=== PATIENT | female | born 1945 | race Caucasian/White ===

== ENCOUNTER 2016-05-27 13:52 | Emergency (ER) | payer MEDICARE ==
[~2016-05-27 13:52] MED LIST: ASCO500C PO; ASPI-482 PO; ASPI325T11 PO; ASPI81TA2 PO; CALC1TAB PO; CLOP75TA27 PO; ENAL20TA PO; HYDR-971 PO; HYDR12.58 PO; INSU100C4 SQ; INSU100V8 SQ; ISOS60TA PO; ISOS60TA2 PO; LISI10TA2 PO; MECL12.5 PO; MELO7.5T5 PO; METO-269 PO; MULT-658 PO; NIFE30TA17 PO; NIFE30TA2 PO; OMEG-33 PO; SIMV20TA3 PO; SIMV40TA3 PO; UBID200C4 PO
--- NOTE | 2016-05-27 14:25 | PHYS DOC ---
Past Medical History Past Medical History: CAD, Cancer, Diabetes-Type I, Heart Disease, Hypertension , Other Additional Past Medical Histor: MELANOMA-LEFT KNEE,VESTIBULAR INNER EAR PROBLEM Past Surgical History: Coronary Bypass Surgery, , Hysterectomy, Tubal ligation, Other Additional Past Surgical Histo: Mastectomy, cataract surgery, carpal tunnel,RT LEG FEM-POP BYPASS Alcohol Use: None Drug Use: None Adult General Chief Complaint Chief Complaint: DIZZY/LIGHT HEADED HPI HPI 70-year-old female who has known this tubular dysfunction and recurrent bouts of vertigo is presenting again today with classic symptoms of her vertigo. She states she was trying to put on her pain legs and felt sudden onset dizziness lightheadedness. She denies falling or having any traumatic injury. She does have some mild nausea with no vomiting. She denies any chest pain or shortness of breath. She denies any fever or chills area Dr. Houston also came down and was able to see the patient and agrees that this is typical classic vertigo symptoms that she is having today. A blood glucose in the field was taken at 92 and normal. Upon my exam and initial evaluation, the patient is fully alert and oriented and able to answer all my questions appropriately. Review of Systems Review of Systems Constitutional: Denies fever or chills [] Eyes: Denies change in visual acuity, redness, or eye pain [] HENT: Denies nasal congestion or sore throat [] Respiratory: Denies cough or shortness of breath [] Cardiovascular: No additional information not addressed in HPI [] GI: Denies abdominal pain, nausea, vomiting, bloody stools or diarrhea [] : Denies dysuria or hematuria [] Musculoskeletal: Denies back pain or joint pain [] Integument: Denies rash or skin lesions [] Neurologic: Denies headache, focal weakness or sensory changes [] Endocrine: Denies polyuria or polydipsia [] Current Medications Current Medications Current Medications Medications (Trade) Dose Ordered Sig/Josselyn Start Time Stop Time Status Last Admin Dose Admin Meclizine HCl (Antivert) 50 mg 1X ONCE 05/27/16 14:30 05/27/16 14:31 DC 05/27/16 14:26 50 MG Ondansetron HCl (Zofran) 4 mg 1X ONCE 05/27/16 14:30 05/27/16 14:31 DC 05/27/16 14:26 4 MG Sodium Chloride (Iv Sodium Chloride 0.9% 1000ml Bag) 1,000 ml @ 1,000 mls/hr 1X ONCE 05/27/16 14:30 05/27/16 15:29 DC 05/27/16 14:28 1,000 MLS/HR Allergies Allergies Allergies Coded Allergies Type Severity Reaction Last Updated Verified No Known Drug Allergies 12/20/13 No Physical Exam Physical Exam Constitutional: Well developed, well nourished, no acute distress, non-toxic appearance. [] HENT: Normocephalic, atraumatic, bilateral external ears normal, oropharynx moist, no oral exudates, nose normal. [] Eyes: PERRLA, EOMI, conjunctiva normal, no discharge. [] Neck: Normal range of motion, no tenderness, supple, no stridor. [] Cardiovascular:Heart rate regular rhythm, no murmur [] Lungs & Thorax: Bilateral breath sounds clear to auscultation [] Abdomen: Bowel sounds normal, soft, no tenderness, no masses, no pulsatile masses. [] Skin: Warm, dry, no erythema, no rash. [] Back: No tenderness, no CVA tenderness. [] Extremities: No tenderness, no cyanosis, no clubbing, ROM intact, no edema. [] Neurologic: Alert and oriented X 3, normal motor function, normal sensory function, no focal deficits noted. [] Psychologic: Affect normal, judgement normal, mood normal. [] Current Patient Data Vital Signs Vital Signs Date Time Temp Pulse Resp B/P Pulse Ox O2 Delivery O2 Flow Rate FiO2 05/27/16 16:30 66 162/72 05/27/16 15:30 16 98 Room Air 05/27/16 13:58 97.9 97.9 Lab Values Laboratory Tests Test 05/27/16 14:20 White Blood Count 13.6x10^3/uL (4.0-11.0) H Red Blood Count 4.32x10^6/uL (3.50-5.40) Hemoglobin 12.9g/dL (12.0-15.5) Hematocrit 39.0% (36.0-47.0) Mean Corpuscular Volume 90fL (79-100) Mean Corpuscular Hemoglobin 30pg (25-35) Mean Corpuscular Hemoglobin Concent 33g/dL (31-37) Red Cell Distribution Width 13.7% (11.5-14.5) Platelet Count 194x10^3/uL (140-400) Neutrophils (%) (Auto) 85% (31-73) H Lymphocytes (%) (Auto) 8% (24-48) L Monocytes (%) (Auto) 6% (0-9) Eosinophils (%) (Auto) 1% (0-3) Basophils (%) (Auto) 1% (0-3) Neutrophils # (Auto) 11.5x10^3uL (1.8-7.7) H Lymphocytes # (Auto) 1.0x10^3/uL (1.0-4.8) Monocytes # (Auto) 0.8x10^3/uL (0.0-1.1) Eosinophils # (Auto) 0.1x10^3/uL (0.0-0.7) Basophils # (Auto) 0.1x10^3/uL (0.0-0.2) Sodium Level 141mmol/L (136-145) Potassium Level 4.0mmol/L (3.5-5.1) Chloride Level 103mmol/L (98-107) Carbon Dioxide Level 29mmol/L (21-32) Anion Gap 9 (6-14) Blood Urea Nitrogen 30mg/dL (7-20) H Creatinine 1.0mg/dL (0.6-1.0) Estimated GFR (Cockcroft-Gault) 54.8 Glucose Level 102mg/dL (70-99) H Calcium Level 9.3mg/dL (8.5-10.1) Troponin I Quantitative 0.023ng/mL (0.000-0.055) Laboratory Tests 05/27/16 14:20 Laboratory Tests 05/27/16 14:20 EKG EKG EKG as interpreted by me shows an atrial flutter type pattern with a heart rate of 60 bpm. There are no acute ischemic findings. I reviewed this EKG with Dr. Houston who agrees this is typical for her usual EKG. Radiology/Procedures Radiology/Procedures Portable 1 view of the chest as interpreted by the radiologist showed a minimal infiltrate in the right upper lobe. I communicated these findings to the patient 's degree she will follow closely with Dr. Romero for this finding. I will also communicate this finding to Dr. Romero. Course & Med Decision Making Course & Med Decision Making Pertinent Labs and Imaging studies reviewed. (See chart for details) This 70-year-old female with symptoms that are classic for her usual vertigo type symptoms will be given a fluid bolus and meclizine in the department. Laboratory workup will be obtained. Her symptoms seem classic for her usual vertigo and so I do not see an indication to perform any head CT at this time. If her symptoms improve she will be safe to be discharged home. Dr. Houston was also here to discuss her case and agreed with this plan. A portable view of her chest didn't demonstrate any infiltrate in the right upper lobe that is somewhat suspicious with the absence of any respiratory type complaints. She is having no cough or fever. I communicated these findings to the patient as well as Dr. Romero who agreed that the patient be safe to follow up with him for repeat chest film area patient given a full IV liter of fluid and ultimately ambulate around the department. She feels comfortable to be discharged home with Zofran ODT. I will communicate this plan with Dr. Araujo who will assume care. Dragon Disclaimer Dragon Disclaimer This electronic medical record was generated, in whole or in part, using a voice recognition dictation system. Departure Departure Impression: Primary Impression: Vertigo Disposition: 01 HOME, SELF-CARE Admitting Physician: Other Condition: STABLE Referrals: CHADD ROMERO MD (PCP) Patient Instructions: Vertigo, [id number] Additional Instructions: Please continue to drink plenty of fluids and take zofran as needed for nausea. Follow up with Dr. Romero as discussed for your chest x-ray finding in the next week. Return to the ER if you develop any worsening of your symptoms. Scripts Ondansetron (Zofran Odt)4 Mg Tab.rapdis4 Mg PO BID PRN NAUSEA/VOMITING #10 TAB Prov:PIPE DUNCAN DO 05/27/16 PIPE DUNCAN DO May 27, 2016 14:25
--- NOTE | 2016-05-27 14:25 | RAD ---
Exam performed: One view chest. Indication: dizziness and nausea since 10:30 AM this morning Date of Service: 05/27/2016 3:55 PM Comparison: 01/05/16. Single AP upright portable view chest findings: Cardiomediastinal silhouette is within limits of normal. Minimal infiltrates are seen in the right upper lobe No pleural effusion or pneumothorax is detected. The bony structures are normal. Impression: Minimal infiltrate right upper lobe
[2016-05-27] MEDS ORDERED: ONDANSETRON PF 4 MG/2 ML VIAL. IV ONE (14:30)
[2016-05-27] MEDS ORDERED: MECLIZINE HCL 12.5 MG TABLET. PO ONE (14:30)
[2016-05-27] MEDS ORDERED: IV NORMAL SALINE 1000ML BAG 1,000 ML IV ONE (14:30)
[2016-05-27 14:43] LABS: BASO # 0.1 x10^3/uL (0.0-0.2); BASO % 1 % (0-3); EOS % 1 % (0-3); HEMOGLOBIN 12.9 g/dL (12.0-15.5); LYMPH % 8 % (24-48); MEAN CORPUSCULAR HEMOGLOBIN 30 pg (25-35); MEAN CORPUSCULAR HGB CONC 33 g/dL (31-37); MEAN CORPUSCULAR VOLUME 90 fL (79-100); MONO % 6 % (0-9); NEUT % 85 % (31-73); PLATELET COUNT 194 x10^3/uL (140-400); RED BLOOD COUNT 4.32 x10^6/uL (3.50-5.40); RED CELL DISTRIBUTION WIDTH 13.7 % (11.5-14.5); WHITE BLOOD COUNT 13.6 x10^3/uL (4.0-11.0)
[2016-05-27 15:02] LABS: CALCIUM 9.3 mg/dL (8.5-10.1); GFR 54.8
[2016-05-27] MEDS ORDERED: ONDA4TAB10 PO (15:27)
[2016-05-27 16:30] VITALS: BP 162/72
--- NOTE | 2016-05-28 12:47 | EKG ---
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
== END 2016-05-27 16:26 | disposition home or self-care (01) ==
LOC: ER 13:52
DX: R42 Dizziness and giddiness (principal); I25.10 Atherosclerotic heart disease of native coronary artery without angina pectoris; E10.9 Type 1 diabetes mellitus without complications; I10 Essential (primary) hypertension; Z95.1 Presence of aortocoronary bypass graft
CPT/HCPCS: 71010; 80048; 84484; 85027; 93005; 96361; 96374; 99285; J2405; J7030; J8597

== ENCOUNTER 2017-03-23 11:01 | Emergency (ER) | payer MEDICARE ==
[2017-03-23 13:03] LABS: ADD MAN DIFF? NO
[2017-03-23 13:07] LABS: BASO # 0.1 x10^3/uL (0.0-0.2); BASO % 1 % (0-3); EOS # 0.3 x10^3/uL (0.0-0.7); EOS % 4 % (0-3); HEMATOCRIT 39.7 % (36.0-47.0); HEMOGLOBIN 12.9 g/dL (12.0-15.5); LYMPH # 1.5 x10^3/uL (1.0-4.8); LYMPH % 25 % (24-48); MEAN CORPUSCULAR HEMOGLOBIN 30 pg (25-35); MEAN CORPUSCULAR HGB CONC 32 g/dL (31-37); MEAN CORPUSCULAR VOLUME 93 fL (79-100); MONO # 0.8 x10^3/uL (0.0-1.1); MONO % 14 % (0-9); NEUT # 3.4 x10^3uL (1.8-7.7); NEUT % 56 % (31-73); PLATELET COUNT 223 x10^3/uL (140-400); RED BLOOD COUNT 4.27 x10^6/uL (3.50-5.40); RED CELL DISTRIBUTION WIDTH 13.4 % (11.5-14.5); WHITE BLOOD COUNT 6.1 x10^3/uL (4.0-11.0)
[2017-03-23 13:17] LABS: BILIRUBIN,URINE NEGATIVE (NEG); CLARITY,URINE CLEAR; COLOR,URINE YELLOW; GLUCOSE,URINE NEGATIVE (NEG); NITRITE,URINE NEGATIVE (NEG); PH,URINE 6.5; PROTEIN,URINE 100 mg/dL (NEG-TRACE); UROBILINOGEN,URINE 0.2 mg/dL (0.2 mg/dL)
[2017-03-23 13:18] LABS: ANION GAP 10 (6-14); BLOOD UREA NITROGEN 29 mg/dL (7-20); BUN/CREATININE RATIO 32 (6-20); CALCIUM 9.3 mg/dL (8.5-10.1); CARBON DIOXIDE 29 mmol/L (21-32); CHLORIDE 104 mmol/L (98-107); CREATININE 0.9 mg/dL (0.6-1.0); GFR 61.7; GLUCOSE 191 mg/dL (70-99); POTASSIUM 4.2 mmol/L (3.5-5.1); SODIUM 143 mmol/L (136-145)
[2017-03-23 13:24] LABS: ALBUMIN 3.6 g/dL (3.4-5.0); ALBUMIN/GLOBULIN RATIO 1.2 (1.0-1.7); ALK PHOS 75 U/L (46-116); ALT (SGPT) 22 U/L (14-59); AST (SGOT) 18 U/L (15-37); TOTAL BILIRUBIN 0.3 mg/dL (0.2-1.0); TOTAL PROTEIN 6.6 g/dL (6.4-8.2)
[2017-03-23 13:30] LABS: TROPONINI < 0.017 ng/mL (0.000-0.055)
[2017-03-23] MEDS: IOHEXOL 300 MG/ML 100ML VIAL. IV (13:44)
[2017-03-23 13:59] LABS: BACTERIA,URINE 0 /HPF (0-FEW); RBC,URINE 0 /HPF (0-2); SQUAMOUS EPITHELIAL CELL,UR OCC /LPF
[2017-03-23 16:10] LABS: INFLUENZA A PATIENT NEGATIVE (NEGATIVE); INFLUENZA B PATIENT NEGATIVE (NEGATIVE); OBC FLU VALID
== END 2017-03-23 17:05 | disposition home or self-care (01) ==
LOC: ER 11:01
DX: R00.2 Palpitations (principal); B34.9 Viral infection, unspecified; I25.10 Atherosclerotic heart disease of native coronary artery without angina pectoris; E10.9 Type 1 diabetes mellitus without complications; I10 Essential (primary) hypertension; Z79.4 Long term (current) use of insulin; Z86.718 Personal history of other venous thrombosis and embolism
CPT/HCPCS: 36415; 71045; 71275; 80053; 81001; 84484; 85025; 87086; 87804; 87804-59; 93005; 99285-25; Q9967

== ENCOUNTER → 2017-06-12 | Outpatient (CLI) | payer MEDICARE ==
[2017-06-12] MEDS: GADOBUTROL 7.5 MMOL/7.5 ML VIAL IV (11:25)
== END | disposition home or self-care (01) ==
LOC: KCIC MRI 10:36
DX: H81.22 Vestibular neuronitis, left ear (principal)
CPT/HCPCS: 70553; A9585

== ENCOUNTER 2018-06-27 10:34 | Inpatient (IN) | payer MEDICARE ==
[~2018-06-27] VITALS: Ht 157.5 cm; Wt 56.7 kg
[~2018-06-27 10:34] MED LIST changes: +ASCO250T PO; +ASPI-630 PO; -ASPI81TA2 PO; -CLOP75TA27 PO; +CLOP75TA57 PO; +HYDR-3164 PO; -HYDR-971 PO; +LISI-130 PO; +METO50TA6 PO; +ONDA4TAB10 PO; +UBID100C40 PO; -UBID200C4 PO; +UBID200C7 PO; +VITA400C36 PO
[2018-06-27] MEDS ORDERED: ASPIRIN 325 MG TABLET PO ONE (11:00)
[2018-06-27 11:12] LABS: BASO # 0.1 x10^3/uL (0.0-0.2); BASO % 1 % (0-3); EOS # 0.3 x10^3/uL (0.0-0.7); EOS % 4 % (0-3); HEMATOCRIT 37.1 % (36.0-47.0); HEMOGLOBIN 12.2 g/dL (12.0-15.5); LYMPH # 1.3 x10^3/uL (1.0-4.8); LYMPH % 18 % (24-48); MEAN CORPUSCULAR HEMOGLOBIN 31 pg (25-35); MEAN CORPUSCULAR HGB CONC 33 g/dL (31-37); MEAN CORPUSCULAR VOLUME 93 fL (79-100); MONO # 0.8 x10^3/uL (0.0-1.1); MONO % 12 % (0-9); NEUT # 4.7 x10^3uL (1.8-7.7); NEUT % 66 % (31-73); PLATELET COUNT 250 x10^3/uL (140-400); RED CELL DISTRIBUTION WIDTH 13.2 % (11.5-14.5); WHITE BLOOD COUNT 7.2 x10^3/uL (4.0-11.0)
[2018-06-27 11:28] LABS: CALCIUM 8.9 mg/dL (8.5-10.1); CREATININE 1.1 mg/dL (0.6-1.0); GFR 48.8; POTASSIUM 3.7 mmol/L (3.5-5.1)
--- NOTE | 2018-06-27 11:30 | RAD ---
EXAM: CHEST 1 VIEW History: Shortness of breath COMPARISON: 05/16/2017 TECHNIQUE: Single portable radiograph of the chest FINDINGS: The cardiac silhouette is unremarkable. Minimal prominent appearing bilateral interstitial lung markings. The costophrenic sulci are clear and well demarcated. Median sternotomy wires identified. IMPRESSION: Probable mild congestive changes. Electronically signed by: Jose Becerra MD (06/27/2018 11:28 AM) [facility]
[2018-06-27 11:32] LABS: PROTHROMBIN TIME PATIENT 12.8 SEC (11.7-14.0)
[2018-06-27 11:34] LABS: ALBUMIN 3.4 g/dL (3.4-5.0); ALBUMIN/GLOBULIN RATIO 0.9 (1.0-1.7); MAGNESIUM 1.9 mg/dL (1.8-2.4); TOTAL BILIRUBIN 0.4 mg/dL (0.2-1.0); TOTAL PROTEIN 7.2 g/dL (6.4-8.2)
--- NOTE | 2018-06-27 11:40 | PHYS DOC ---
Past Medical History Past Medical History: CAD, Cancer, Diabetes-Type I, High Cholesterol, Heart Disease, Hypertension, Other Additional Past Medical Histor: MELANOMA-LEFT KNEE,VESTIBULAR NEURONITIS L EAR, VERTIGO Past Surgical History: Coronary Bypass Surgery, , Hysterectomy, Tubal ligation, Other Additional Past Surgical Histo: Mastectomy, cataract surgery, carpal tunnel,RT LEG FEM-POP BYPASS Alcohol Use: None Drug Use: None Adult General Chief Complaint Chief Complaint: SHORTNESS OF BREATH HPI HPI Patient is a 72 year old female with history of diabetes type 1, hypertension, high cholesterol, CAD with open heart surgery years back, who presents to the ED today complaining of shortness of breath and chest tightness on exertion that has been going on for 2 days. Patient denies any fever coughing or congestion. Denies any nausea or vomiting. She states she does not have any chest pain just chest tightness. She states she has been following up with a new referral clerk and she is being worked up. PCP Dr. Chadd Romero Sandblasting Supervisor Dr. Lovell Review of Systems Review of Systems Constitutional: Denies fever or chills [] Eyes: Denies change in visual acuity, redness, or eye pain [] HENT: Denies nasal congestion or sore throat [] Respiratory: Reports shortness of breath and chest tightness. Denies cough Cardiovascular: No additional information not addressed in HPI [] GI: Denies abdominal pain, nausea, vomiting, bloody stools or diarrhea [] : Denies dysuria or hematuria [] Musculoskeletal: Denies back pain or joint pain [] Integument: Denies rash or skin lesions [] Neurologic: Denies headache, focal weakness or sensory changes [] All other systems were reviewed and found to be within normal limits, except as documented in this note. Current Medications Current Medications Current Medications Medications (Trade) Dose Ordered Sig/Josselyn Start Time Stop Time Status Last Admin Dose Admin Aspirin (Consuelo Aspirin) 325 mg 1X ONCE 06/27/18 11:00 06/27/18 11:03 DC 06/27/18 11:14 325 MG Allergies Allergies Allergies Coded Allergies Type Severity Reaction Last Updated Verified No Known Drug Allergies 12/20/13 No Physical Exam Physical Exam Constitutional: Well developed, well nourished, no acute distress, non-toxic appearance. [] HENT: Normocephalic, atraumatic, bilateral external ears normal, oropharynx moist, no oral exudates, nose normal. [] Eyes: PERRLA, EOMI, conjunctiva normal, no discharge. [] Neck: Normal range of motion, no tenderness, supple, no stridor. [] Cardiovascular: Old healed midline chest surgical incision consistent with open heart surgery Heart rate regular rhythm, no murmur [] Lungs & Thorax: Bilateral breath sounds clear to auscultation [] Abdomen: Bowel sounds normal, soft, no tenderness, no masses, no pulsatile masses. [] Skin: Warm, dry, no erythema, no rash. [] Back: No tenderness, no CVA tenderness. [] Extremities: No tenderness, no cyanosis, no clubbing, ROM intact, no edema. [] Neurologic: Alert and oriented X 3, normal motor function, normal sensory function, no focal deficits noted. [] Psychologic: Affect normal, judgement normal, mood normal. [] Current Patient Data Vital Signs Vital Signs Date Time Temp Pulse Resp B/P (MAP) Pulse Ox O2 Delivery O2 Flow Rate FiO2 06/27/18 13:55 56 14 194/79 (117) 98 Room Air 06/27/18 10:42 98.4 98.4 Lab Values Laboratory Tests Test 06/27/18 10:52 06/27/18 11:55 White Blood Count 7.2 x10^3/uL (4.0-11.0) Red Blood Count 4.00 x10^6/uL (3.50-5.40) Hemoglobin 12.2 g/dL (12.0-15.5) Hematocrit 37.1 % (36.0-47.0) Mean Corpuscular Volume 93 fL (79-100) Mean Corpuscular Hemoglobin 31 pg (25-35) Mean Corpuscular Hemoglobin Concent 33 g/dL (31-37) Red Cell Distribution Width 13.2 % (11.5-14.5) Platelet Count 250 x10^3/uL (140-400) Neutrophils (%) (Auto) 66 % (31-73) Lymphocytes (%) (Auto) 18 % (24-48) L Monocytes (%) (Auto) 12 % (0-9) H Eosinophils (%) (Auto) 4 % (0-3) H Basophils (%) (Auto) 1 % (0-3) Neutrophils # (Auto) 4.7 x10^3uL (1.8-7.7) Lymphocytes # (Auto) 1.3 x10^3/uL (1.0-4.8) Monocytes # (Auto) 0.8 x10^3/uL (0.0-1.1) Eosinophils # (Auto) 0.3 x10^3/uL (0.0-0.7) Basophils # (Auto) 0.1 x10^3/uL (0.0-0.2) Prothrombin Time 12.8 SEC (11.7-14.0) Prothrombin Time INR 1.0 (0.8-1.1) D-Dimer (Deepa) 0.48 ug/mlFEU (0.00-0.50) Sodium Level 141 mmol/L (136-145) Potassium Level 3.7 mmol/L (3.5-5.1) Chloride Level 103 mmol/L (98-107) Carbon Dioxide Level 29 mmol/L (21-32) Anion Gap 9 (6-14) Blood Urea Nitrogen 31 mg/dL (7-20) H Creatinine 1.1 mg/dL (0.6-1.0) H Estimated GFR (Cockcroft-Gault) 48.8 BUN/Creatinine Ratio 28 (6-20) H Glucose Level 161 mg/dL (70-99) H Calcium Level 8.9 mg/dL (8.5-10.1) Magnesium Level 1.9 mg/dL (1.8-2.4) Total Bilirubin 0.4 mg/dL (0.2-1.0) Aspartate Amino Transferase (AST) 21 U/L (15-37) Alanine Aminotransferase (ALT) 20 U/L (14-59) Alkaline Phosphatase 75 U/L (46-116) Creatine Kinase 76 U/L (26-192) Creatine Kinase MB (Mass) 2.1 ng/mL (0.0-3.6) Creatine Kinase MB Relative Index 2.8 % (0-4) Troponin I Quantitative < 0.017 ng/mL (0.000-0.055) FJ-Qsa-P-Type Natriuretic Peptide 1082 pg/mL (0-124) H Total Protein 7.2 g/dL (6.4-8.2) Albumin 3.4 g/dL (3.4-5.0) Albumin/Globulin Ratio 0.9 (1.0-1.7) L Triglycerides Level 63 mg/dL (0-150) Cholesterol Level 181 mg/dL (0-200) LDL Cholesterol, Calculated 96 mg/dL (0-100) VLDL Cholesterol, Calculated 13 mg/dL (0-40) Non-HDL Cholesterol Calculated 109 mg/dL (0-129) HDL Cholesterol 72 mg/dL (40-60) H Cholesterol/HDL Ratio 2.5 Thyroid Stimulating Hormone (TSH) 1.342 uIU/mL (0.358-3.74) Urine Collection Type Unknown Urine Color Yellow Urine Clarity Clear Urine pH 7.0 Urine Specific [place] <=1.005 Urine Protein Negative mg/dL (NEG-TRACE) Urine Glucose (UA) Negative mg/dL (NEG) Urine Ketones (Stick) Negative mg/dL (NEG) Urine Blood Negative (NEG) Urine Nitrite Negative (NEG) Urine Bilirubin Negative (NEG) Urine Urobilinogen Dipstick 0.2 mg/dL (0.2 mg/dL) Urine Leukocyte Esterase Negative (NEG) Urine RBC 0 /HPF (0-2) Urine WBC 0 /HPF (0-4) Urine Squamous Epithelial Cells Few /LPF Urine Bacteria 0 /HPF (0-FEW) Laboratory Tests 06/27/18 10:52 Laboratory Tests 06/27/18 10:52 EKG EKG Interpreted by Dr. Bustos sinus rhythm HR 63 no STEMI[] Radiology/Procedures Radiology/Procedures []PROCEDURE: PORTABLE CHEST 1V EXAM: CHEST 1 VIEW History: Shortness of breath COMPARISON: 05/16/2017 TECHNIQUE: Single portable radiograph of the chest FINDINGS: The cardiac silhouette is unremarkable. Minimal prominent appearing bilateral interstitial lung markings. The costophrenic sulci are clear and well demarcated. Median sternotomy wires identified. IMPRESSION: Probable mild congestive changes. Electronically signed by: Jose Becerra MD (06/27/2018 11:28 AM) [facility] DICTATED and SIGNED BY: JOSE BECERRA MD DATE: 06/27/18 1128 Course & Med Decision Making Course & Med Decision Making Pertinent Labs and Imaging studies reviewed. (See chart for details) This is a 72-year-old female patient presenting to the ED today complaining of shortness of breath and chest tightness on exertion for 2 days. EKG, lab work, including cardiac workup is negative, chest x-ray noted for mild CHF. Consulted with Grace YARBROUGH for cardiology who will come and see patient in the ED.Allan came and saw patient. Spoke with Dr. Romero who accepted patient for admission. Dragon Disclaimer Dragon Disclaimer This electronic medical record was generated, in whole or in part, using a voice recognition dictation system. Departure Departure Impression: Primary Impression: Chest tightness Additional Impression: Shortness of breath Disposition: ADMITTED INPATIENT Condition: STABLE Referrals: CHADD ROMERO MD (PCP) Problem Qualifiers ADRIAN SMITH SANDBLASTING SUPERVISOR Jun 27, 2018 11:40
[2018-06-27 12:03] LABS: BILIRUBIN,URINE NEGATIVE (NEG); CLARITY,URINE CLEAR; COLOR,URINE YELLOW; NITRITE,URINE NEGATIVE (NEG); PROTEIN,URINE NEGATIVE (NEG-TRACE); UROBILINOGEN,URINE 0.2 mg/dL (0.2 mg/dL)
[2018-06-27 12:03] LABS: D-DIMER 0.48 ug/mlFEU (0.00-0.50)
[2018-06-27 12:08] LABS: BACTERIA,URINE 0 /HPF (0-FEW); RBC,URINE 0 /HPF (0-2); SQUAMOUS EPITHELIAL CELL,UR FEW /LPF; WBC,URINE 0 /HPF (0-4)
[2018-06-27 13:49] LABS: CHOLESTEROL/HDL RATIO 2.5
--- NOTE | 2018-06-27 14:03 | PDOC2 ---
BERTA TAN APPRENTICE COSMETOLOGIST 06/27/18 1403: CARDIAC CONSULT DATE OF CONSULT Date of Consult DATE: 06/27/18 TIME: 13:43 REASON FOR CONSULT Reason for Consult: Chest pain REFERRING PHYSICIAN Referring Physician: Agusto SOURCE Source: Chart review, Patient HISTORY OF PRESENT ILLNESS HISTORY OF PRESENT ILLNESS This is a pleasant 72 yo female admitted for complains of chest pain. Reports that she has been feeling more tired in the last 3 days. [place] also SOA even at rest and felt like she has to take a deep breath often. No significant leg swelling, no orthopnea and PND. She started having chest tightness this morning started to left chest then middle and lasted till she got to ED. No NTG given but ASA. Her SBP currently is 210 and told me that her BP tends to go up when she is in the hospital. At home she noted this as 140-150s. She took all of her BP meds this morning. No chronic NSAID use, no recent infection requiring antibiotics, denies any nausea, vomiting, diarrhea. Denies any MOY, no recent falls or injury. 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 in the past with also past retinal detachment repair) Renal/: No pertinent hx Endocrine: Diabetes (1 since she was 4 yo) Dermatology: Melanoma (with left knee with excision) PAST SURGICAL HISTORY Past Surgical History: CABG (1999 x3), , Mastectomy (bilateral), Tubal Ligation, Hysterectomy, Other (Carpal tunnel release; right leg fempop bypass and LLE revascularization (unclear); breast reconstructions; eye surgery to right; [facility] 2001 and 2006 no intervention) FAMILY HISTORY Family History noncontributory SOCIAL HISTORY Smoke: No ALCOHOL: none Drugs: None CURRENT MEDICATIONS CURRENT MEDICATIONS Current Medications Medications (Trade) Dose Ordered Sig/Josselyn Route PRN Reason Start Time Stop Time Status Last Admin Dose Admin Aspirin (Consuelo Aspirin) 325 mg 1X ONCE PO 06/27/18 11:00 06/27/18 11:03 DC 06/27/18 11:14 ALLERGIES ALLERGIES: Coded Allergies: No Known Drug Allergies (Unverified , 12/20/13) ROS Review of System 14 point ROS evaluated with pertinent positives noted per HPI PHYSICAL EXAM General: Alert, Oriented X3, Cooperative, No acute distress HEENT: Atraumatic, Mucous membr. moist/pink Lungs: Other (basilar crackles) Heart: Regular rate, Other (4/6 systolic murmur to LLS border) Abdomen: Soft, No tenderness Extremities: No cyanosis, Other (trace LE edema) Skin: No breakdown, No significant lesion Neuro: Normal speech, Sensation intact Psych/Mental Status: Mental status NL, Mood NL MUSCULOSKELETAL: Osteoarthritic changes both hands VITALS VITALS Vital Signs Date Time Temp Pulse Resp B/P (MAP) Pulse Ox O2 Delivery O2 Flow Rate FiO2 06/27/18 10:42 98.4 60 20 187/86 (119) 97 Room Air 98.4 LABS Lab: Laboratory Tests Test 06/27/18 10:52 06/27/18 11:55 White Blood Count 7.2 x10^3/uL (4.0-11.0) Red Blood Count 4.00 x10^6/uL (3.50-5.40) Hemoglobin 12.2 g/dL (12.0-15.5) Hematocrit 37.1 % (36.0-47.0) Mean Corpuscular Volume 93 fL (79-100) Mean Corpuscular Hemoglobin 31 pg (25-35) Mean Corpuscular Hemoglobin Concent 33 g/dL (31-37) Red Cell Distribution Width 13.2 % (11.5-14.5) Platelet Count 250 x10^3/uL (140-400) Neutrophils (%) (Auto) 66 % (31-73) Lymphocytes (%) (Auto) 18 % (24-48) Monocytes (%) (Auto) 12 % (0-9) Eosinophils (%) (Auto) 4 % (0-3) Basophils (%) (Auto) 1 % (0-3) Neutrophils # (Auto) 4.7 x10^3uL (1.8-7.7) Lymphocytes # (Auto) 1.3 x10^3/uL (1.0-4.8) Monocytes # (Auto) 0.8 x10^3/uL (0.0-1.1) Eosinophils # (Auto) 0.3 x10^3/uL (0.0-0.7) Basophils # (Auto) 0.1 x10^3/uL (0.0-0.2) Prothrombin Time 12.8 SEC (11.7-14.0) Prothromb Time International Ratio 1.0 (0.8-1.1) D-Dimer (Deepa) 0.48 ug/mlFEU (0.00-0.50) Sodium Level 141 mmol/L (136-145) Potassium Level 3.7 mmol/L (3.5-5.1) Chloride Level 103 mmol/L (98-107) Carbon Dioxide Level 29 mmol/L (21-32) Anion Gap 9 (6-14) Blood Urea Nitrogen 31 mg/dL (7-20) Creatinine 1.1 mg/dL (0.6-1.0) Estimated GFR (Cockcroft-Gault) 48.8 BUN/Creatinine Ratio 28 (6-20) Glucose Level 161 mg/dL (70-99) Calcium Level 8.9 mg/dL (8.5-10.1) Magnesium Level 1.9 mg/dL (1.8-2.4) Total Bilirubin 0.4 mg/dL (0.2-1.0) Aspartate Amino Transf (AST/SGOT) 21 U/L (15-37) Alanine Aminotransferase (ALT/SGPT) 20 U/L (14-59) Alkaline Phosphatase 75 U/L (46-116) Creatine Kinase 76 U/L (26-192) Creatine Kinase MB (Mass) 2.1 ng/mL (0.0-3.6) Creatine Kinase MB Relative Index 2.8 % (0-4) Troponin I Quantitative < 0.017 ng/mL (0.000-0.055) PQ-Cjh-U-Type Natriuretic Peptide 1082 pg/mL (0-124) Total Protein 7.2 g/dL (6.4-8.2) Albumin 3.4 g/dL (3.4-5.0) Albumin/Globulin Ratio 0.9 (1.0-1.7) Thyroid Stimulating Hormone (TSH) 1.342 uIU/mL (0.358-3.74) Urine Collection Type Unknown Urine Color Yellow Urine Clarity Clear Urine pH 7.0 Urine Specific [place] <=1.005 Urine Protein Negative mg/dL (NEG-TRACE) Urine Glucose (UA) Negative mg/dL (NEG) Urine Ketones (Stick) Negative mg/dL (NEG) Urine Blood Negative (NEG) Urine Nitrite Negative (NEG) Urine Bilirubin Negative (NEG) Urine Urobilinogen Dipstick 0.2 mg/dL (0.2 mg/dL) Urine Leukocyte Esterase Negative (NEG) Urine RBC 0 /HPF (0-2) Urine WBC 0 /HPF (0-4) Urine Squamous Epithelial Cells Few /LPF Urine Bacteria 0 /HPF (0-FEW) ECHOCARDIOGRAM ECHOCARDIOGRAM <Conclusion> Limited The LV Ejection Fraction is 45%. There is moderate hypokinesis in the septal wall. There is no evidence of significant pericardial effusion. DATE: 05/16/171916 <Conclusion> Full The left ventricular systolic function is normal and the ejection fraction is within normal range. The Ejection Fraction is 60%. The left atrium size is normal. The right atrium size is normal. The aortic valve is mildly calcified. Doppler and Color Flow revealed no significant aortic regurgitation. Doppler and Color-flow revealed mild mitral regurgitation. The mitral valve leaflets are calcified. Mitral annular calcification is mild. Doppler and Color Flow revealed no tricuspid valve regurgitation noted. The tricuspid valve is normal in structure and function. The pulmonic valve is not well visualized. There is no evidence of significant pericardial effusion. DATE: 05/11/171932 ASSESSMENT/PLAN ASSESSMENT/PLAN 1. Chest pain: UA features 2. Accelerated HTN 3. Acute on chronic diastolic CHF 4. CAD: past CABG x3 in 1999 5. DM1: insulin dependent. A1C pending 6. HLP: lipids on goal 7. PAD: hx of RLE fempop bypass and LLE revascularization (unclear method), clinically stable. Recommendations 1. Lasix x1. Hydralazine IV PRN 2. Resume Home BP meds will adjust per BP trend. Home ASA/plavix. 3. TTE and renal duplex scan today. Trend troponin 4. LHC vs MPI tomorrow, risks and benefits discussed and agreeable to proceed. Will discuss with primary trauma therapist STEPHANIE ELLIOTT MD 06/27/18 1605: CARDIAC CONSULT ASSESSMENT/PLAN ASSESSMENT/PLAN Patient seen and examined. Agree with CLINICAL DOCUMENTATION MANAGER's assessment and plan. Chest pain with mixed features - could be secondary to uncontrolled hypertension but cannot rule out ischemic etiology. Cardiac enzymes negative so far. Check 2-D echo to assess LV function and rule out wall motion abnormalities Titrate antihypertensives for better blood pressure control Agree with renal arterial duplex scan to rule out renovascular hypertension Plan for Lexiscan nuclear stress test as previously planned Continue diuresis for acute on chronic diastolic heart failure Thank you for your consultation BERTA TAN APRN Jun 27, 2018 14:03 STEPHANIE ELLIOTT MD Jun 27, 2018 16:05
[2018-06-27] MEDS ORDERED: FUROSEMIDE 40 MG/4 ML VIAL. IVP ONE (14:30)
--- NOTE | 2018-06-27 14:36 | EKG ---
[facility] [address] [place] [address] Test Date: 2018-06-27 Test Time: 10:48:25 Pat Name: NEHA BEAR Department: Room: Gender: F Brusher War[place]: : 1945 Requested By: ADRIAN SMITH Order Number: [id number] Reading MD: Joaquín Shah MD Measurements Intervals Show Low Rate: 63 P: 46 MO: 182 QRS: 73 QRSD: 86 T: 52 QT: 410 QTc: 423 Interpretive Statements SINUS RHYTHM NON-SPECIFIC ST/T CHANGES Electronically Signed On 07-08-2018 10:21:43 CDT by Joaquín Shah MD
[2018-06-27] MEDS ORDERED: hydrALAZINE 20 MG/ML VIAL. IVP PRN (14:45)
[2018-06-27] MEDS ORDERED: MORPHINE SULFATE 4 MG/ML VIAL. IV PRN (15:00)
[2018-06-27] MEDS ORDERED: NITROGLYCERIN SUBLINGUAL 0.4 MG BOTTLE OF 25. SL PRN (15:00)
[2018-06-27] MEDS ORDERED: ONDANSETRON PF 4 MG/2 ML VIAL. IV PRN (15:00)
--- NOTE | 2018-06-27 16:16 | CARD ---
MR#: [id number] Date of Study: 06/27/2018 Ordering Physician: BERTA TAN, Referring Physician: CHADD RMOERO Tech: Amanda Pascual APPROVED REPORT EXAM: Two-dimensional and M-mode echocardiogram with Doppler and color Doppler. Other Information Quality : AverageHR: 63bpm Technically limited study due to Breast Surgery INDICATION Dyspnea CAD Chest Pain Congestive Heart Failure Surgery/Intervention CABG: Date: 2002 RISK FACTORS Hypertension Hyperlipidemia Diabetes 2D DIMENSIONS RVDd2.5 (2.9-3.5cm)Left Atrium(2D)2.6 (1.6-4.0cm) IVSd0.8 (0.7-1.1cm)Aortic Root(2D)3.1 (2.0-3.7cm) LVDd4.6 (3.9-5.9cm)LVOT Diameter2.1 (1.8-2.4cm) PWd1.1 (0.7-1.1cm)IVSs3.1 (0.8-1.2cm) LVDs3.1 (2.5-4.0cm)FS (%) 31.2 % SV56.3 mlLVEF(%)59.1 (>50%) Aortic Valve AoV Peak Marcelo.129.6cm/sAoV VTI33.4cm AO Peak GR.6.7mmHgLVOT Peak Marcelo.100.9cm/s LVOT VTI 27.68cmAO Mean GR.4mmHg CARLOS EDUARDO (VMAX)2.81kr6PRM (VTI)2.79cm2 Mitral Valve MV E Agptatwb427.6cm/sMV DECEL DMNO706ne MV A Dedcpqsi540.5cm/sMV RUH20gf E/A Ratio0.9MVA (PHT)3.17cm2 TDI E/Lateral E'15.0E/Medial E'20.9 Pulmonary Valve PV Peak Mmkthlon91.2cm/sPV Peak Grad.2mmHg Tricuspid Valve TR P. Tmkltdvu804uu/sRAP JRLZWVDJ1mtLa TR Peak Gr.27ekShEOOB51duKp Pulmonary Vein S1 Ldzgdbol96.6cm/sD2 Oglkufmx58.8cm/s LEFT VENTRICLE The left ventricle is normal size. There is normal left ventricular wall thickness. Basal inferior an d inferoseptal marin appear hypokinetic. The Ejection Fraction is 55%. Transmitral Doppler flow patte rn is Grade I-abnormal relaxation pattern. RIGHT VENTRICLE The right ventricle is normal size. There is normal right ventricular wall thickness. The right ventr icular systolic function is normal. ATRIA The left atrium size is normal. The right atrium size is normal. The interatrial septum is intact wit h no evidence for an atrial septal defect or patent foramen ovale as noted on 2-D or Doppler imaging. AORTIC VALVE The aortic valve is thickened but opens well. Doppler and Color Flow revealed no significant aortic r egurgitation. There is no significant aortic valvular stenosis. MITRAL VALVE The mitral valve is thickened but opens well. There is no evidence of mitral valve prolapse. There is no mitral valve stenosis. Doppler and Color-flow revealed trace to mild mitral regurgitation. TRICUSPID VALVE The tricuspid valve is normal in structure and function. Doppler and Color Flow revealed trace tricus pid regurgitation with an estimated PAP of 22 mmHg. There is no tricuspid valve stenosis. PULMONIC VALVE The pulmonic valve is not well visualized. Doppler and Color Flow revealed no pulmonic valvular regur gitation. GREAT VESSELS The aortic root is normal in size. The IVC is normal in size and collapses >50% with inspiration. PERICARDIAL EFFUSION There is no evidence of significant pericardial effusion. Critical Notification Critical Value: No <Conclusion> Basal inferior and inferoseptal marin appear hypokinetic. The Ejection Fraction is 55%. Transmitral Doppler flow pattern is Grade I-abnormal relaxation pattern. Trace to mild mitral regurgitation. Trace tricuspid regurgitation with an estimated PAP of 22 mmHg. There is no evidence of significant pericardial effusion. Signed by : Silvio Lovell, Electronically Approved : 06/27/2018 16:16:00
[2018-06-27 16:45] VITALS: BP 176/78
--- NOTE | 2018-06-27 17:24 | NUR ---
PT ORIENTED TO ROOM AND UNIT. BED LOW AND LOCKED, SIDE RAILS UP X 3, CALL LIGHT IN REACH. WILL CONTINUE TO ASSESS.
[2018-06-27 19:16] VITALS: BP 135/56
[2018-06-27] MEDS: ATORVASTATIN CALCIUM 10 MG TABLET. PO SCH (20:49)
[2018-06-27] MEDS: METOPROLOL TART IMMED RELEASE 50 MG TABLET. PO SCH (20:49)
[2018-06-27 22:31] VITALS: BP 162/72
[2018-06-28] VITALS (14 sets, daily range): BP systolic 128–179; BP diastolic 59–76
[2018-06-28 00:09] LABS: HEMOGLOBIN A1C 7.5 % (4.8-5.6)
[2018-06-28 05:12] LABS: BASO # 0.1 x10^3/uL (0.0-0.2); BASO % 1 % (0-3); EOS # 0.4 x10^3/uL (0.0-0.7); EOS % 5 % (0-3); HEMATOCRIT 40.1 % (36.0-47.0); HEMOGLOBIN 13.1 g/dL (12.0-15.5); LYMPH # 1.6 x10^3/uL (1.0-4.8); LYMPH % 22 % (24-48); MEAN CORPUSCULAR HEMOGLOBIN 30 pg (25-35); MEAN CORPUSCULAR HGB CONC 33 g/dL (31-37); MEAN CORPUSCULAR VOLUME 93 fL (79-100); MONO # 1.1 x10^3/uL (0.0-1.1); MONO % 15 % (0-9); NEUT # 4.1 x10^3uL (1.8-7.7); NEUT % 57 % (31-73); PLATELET COUNT 248 x10^3/uL (140-400); RED CELL DISTRIBUTION WIDTH 13.3 % (11.5-14.5); WHITE BLOOD COUNT 7.2 x10^3/uL (4.0-11.0)
[2018-06-28 05:37] LABS: CALCIUM 9.1 mg/dL (8.5-10.1); CREATININE 1.2 mg/dL (0.6-1.0); GFR 44.2; POTASSIUM 3.7 mmol/L (3.5-5.1)
--- NOTE | 2018-06-28 07:51 | RAD ---
MR#: [id number] Date of Study: 06/28/2018 Ordering Physician: BERTA TAN, Referring Physician: CHADD ROMERO Tech: Juanita Benton BS, RTR, RDMS, RVT APPROVED REPORT Patient Location: IN-PATIENT Indications Uncontrolled HTN Risk Factors Hypertension Diabetes Renal Artery Doppler Right Renal Artery Left Renal Arter y Proximal 158.0/19.0 cm/secProximal 155.0/24.0 cm/sec Mid 113.0/22.0 cm/secMid 79.0/18.0 cm/sec Distal 80.0/16.0 cm/secDistal 97.0/22.0 cm/sec Renal/Aorta Ratio 1.13Renal/Aorta Ratio 1.11 Prox. Resistive Index 0.88Prox. Resistive Index 0.84 Mid Resistive Index 0.81Mid Resistive Index 0.77 Distal Resistive Index 0.80Distal Resistive Index 0.78 Renal Measurements RightLeft Kidney Msejsj78.7 cm cmKidney Length9.8 cm cm Right Additional FindingsLeft Additional Findings Findings Grayscale images of the bilateral kidneys are grossly unremarkable on limited images. The aorta appears to be severely calcified but no focal obstruction is noted on limited images. Spectral waveforms and color Doppler of the proximal mid and distal renal arteries does not reveal an y significant velocity acceleration. Normal renal to aortic ratios. Overall no significant stenosis i dentified bilaterally. Critical Notification Critical Value: No <Conclusion> No significant renal artery stenosis bilaterally Signed by : Joaquín Shah, Electronically Approved : 06/28/2018 07:51:11
[2018-06-28] MEDS ORDERED: REGADENOSON 0.4 MG/5 ML DISP.SYRIN. IV ONE (08:15)
--- NOTE | 2018-06-28 08:51 | PDOC ---
Provider Note Provider Note [id number] CHADD ROMERO MD Jun 28, 2018 08:51
[2018-06-28] MEDS ORDERED: hydroCHLOROthiazide 12.5 MG CAPSULE PO SCH (09:00)
[2018-06-28] MEDS ORDERED: NON FORMULARY ITEM (Ubidecarenone (Co Q-10) 100 MG) PO SCH (09:00)
--- NOTE | 2018-06-28 09:28 | PDOC ---
BERTA TAN COLOR SPECIALIST 06/28/18 0928: CARDIO Progress Notes Date and Time Date of Service 06/28/2018 Time of Evaluation 0915 Subjective Subjective: No Chest Pain, No shortness of breath, No Palpitations Vitals Vitals Vital Signs Date Time Temp Pulse Resp B/P (MAP) Pulse Ox O2 Delivery O2 Flow Rate FiO2 06/28/18 08:15 Room Air 06/28/18 07:00 98.0 70 18 168/60 (96) 96 98.0 Weight Weight [ ] Input and Output Intake and Output Intake and Output 06/28/18 07:00 Intake Total 400 ml Output Total 400 ml Balance 0 ml Intake Oral 400 ml Output Urine Total 400 ml # Voids 1 Laboratory Labs Laboratory Tests Test 06/27/18 10:52 06/27/18 11:55 06/27/18 14:11 06/27/18 16:58 White Blood Count 7.2 x10^3/uL (4.0-11.0) Red Blood Count 4.00 x10^6/uL (3.50-5.40) Hemoglobin 12.2 g/dL (12.0-15.5) Hematocrit 37.1 % (36.0-47.0) Mean Corpuscular Volume 93 fL (79-100) Mean Corpuscular Hemoglobin 31 pg (25-35) Mean Corpuscular Hemoglobin Concent 33 g/dL (31-37) Red Cell Distribution Width 13.2 % (11.5-14.5) Platelet Count 250 x10^3/uL (140-400) Neutrophils (%) (Auto) 66 % (31-73) Lymphocytes (%) (Auto) 18 % (24-48) Monocytes (%) (Auto) 12 % (0-9) Eosinophils (%) (Auto) 4 % (0-3) Basophils (%) (Auto) 1 % (0-3) Neutrophils # (Auto) 4.7 x10^3uL (1.8-7.7) Lymphocytes # (Auto) 1.3 x10^3/uL (1.0-4.8) Monocytes # (Auto) 0.8 x10^3/uL (0.0-1.1) Eosinophils # (Auto) 0.3 x10^3/uL (0.0-0.7) Basophils # (Auto) 0.1 x10^3/uL (0.0-0.2) Prothrombin Time 12.8 SEC (11.7-14.0) Prothromb Time International Ratio 1.0 (0.8-1.1) D-Dimer (Deepa) 0.48 ug/mlFEU (0.00-0.50) Sodium Level 141 mmol/L (136-145) Potassium Level 3.7 mmol/L (3.5-5.1) Chloride Level 103 mmol/L (98-107) Carbon Dioxide Level 29 mmol/L (21-32) Anion Gap 9 (6-14) Blood Urea Nitrogen 31 mg/dL (7-20) Creatinine 1.1 mg/dL (0.6-1.0) Estimated GFR (Cockcroft-Gault) 48.8 BUN/Creatinine Ratio 28 (6-20) Glucose Level 161 mg/dL (70-99) Hemoglobin A1c 7.5 % (4.8-5.6) Calcium Level 8.9 mg/dL (8.5-10.1) Magnesium Level 1.9 mg/dL (1.8-2.4) Total Bilirubin 0.4 mg/dL (0.2-1.0) Aspartate Amino Transf (AST/SGOT) 21 U/L (15-37) Alanine Aminotransferase (ALT/SGPT) 20 U/L (14-59) Alkaline Phosphatase 75 U/L (46-116) Creatine Kinase 76 U/L (26-192) Creatine Kinase MB (Mass) 2.1 ng/mL (0.0-3.6) Creatine Kinase MB Relative Index 2.8 % (0-4) Troponin I Quantitative < 0.017 ng/mL (0.000-0.055) 0.020 ng/mL (0.000-0.055) CZ-Prw-B-Type Natriuretic Peptide 1082 pg/mL (0-124) Total Protein 7.2 g/dL (6.4-8.2) Albumin 3.4 g/dL (3.4-5.0) Albumin/Globulin Ratio 0.9 (1.0-1.7) Triglycerides Level 63 mg/dL (0-150) Cholesterol Level 181 mg/dL (0-200) LDL Cholesterol, Calculated 96 mg/dL (0-100) VLDL Cholesterol, Calculated 13 mg/dL (0-40) Non-HDL Cholesterol Calculated 109 mg/dL (0-129) HDL Cholesterol 72 mg/dL (40-60) Cholesterol/HDL Ratio 2.5 Thyroid Stimulating Hormone (TSH) 1.342 uIU/mL (0.358-3.74) Urine Collection Type Unknown Urine Color Yellow Urine Clarity Clear Urine pH 7.0 Urine Specific [place] <=1.005 Urine Protein Negative mg/dL (NEG-TRACE) Urine Glucose (UA) Negative mg/dL (NEG) Urine Ketones (Stick) Negative mg/dL (NEG) Urine Blood Negative (NEG) Urine Nitrite Negative (NEG) Urine Bilirubin Negative (NEG) Urine Urobilinogen Dipstick 0.2 mg/dL (0.2 mg/dL) Urine Leukocyte Esterase Negative (NEG) Urine RBC 0 /HPF (0-2) Urine WBC 0 /HPF (0-4) Urine Squamous Epithelial Cells Few /LPF Urine Bacteria 0 /HPF (0-FEW) Glucose (Fingerstick) 63 mg/dL (70-99) Test 06/27/18 18:40 06/27/18 20:05 06/27/18 20:44 06/28/18 05:00 Glucose (Fingerstick) 232 mg/dL (70-99) 351 mg/dL (70-99) Troponin I Quantitative < 0.017 ng/mL (0.000-0.055) White Blood Count 7.2 x10^3/uL (4.0-11.0) Red Blood Count 4.30 x10^6/uL (3.50-5.40) Hemoglobin 13.1 g/dL (12.0-15.5) Hematocrit 40.1 % (36.0-47.0) Mean Corpuscular Volume 93 fL (79-100) Mean Corpuscular Hemoglobin 30 pg (25-35) Mean Corpuscular Hemoglobin Concent 33 g/dL (31-37) Red Cell Distribution Width 13.3 % (11.5-14.5) Platelet Count 248 x10^3/uL (140-400) Neutrophils (%) (Auto) 57 % (31-73) Lymphocytes (%) (Auto) 22 % (24-48) Monocytes (%) (Auto) 15 % (0-9) Eosinophils (%) (Auto) 5 % (0-3) Basophils (%) (Auto) 1 % (0-3) Neutrophils # (Auto) 4.1 x10^3uL (1.8-7.7) Lymphocytes # (Auto) 1.6 x10^3/uL (1.0-4.8) Monocytes # (Auto) 1.1 x10^3/uL (0.0-1.1) Eosinophils # (Auto) 0.4 x10^3/uL (0.0-0.7) Basophils # (Auto) 0.1 x10^3/uL (0.0-0.2) Sodium Level 144 mmol/L (136-145) Potassium Level 3.7 mmol/L (3.5-5.1) Chloride Level 105 mmol/L (98-107) Carbon Dioxide Level 31 mmol/L (21-32) Anion Gap 8 (6-14) Blood Urea Nitrogen 33 mg/dL (7-20) Creatinine 1.2 mg/dL (0.6-1.0) Estimated GFR (Cockcroft-Gault) 44.2 Glucose Level 247 mg/dL (70-99) Calcium Level 9.1 mg/dL (8.5-10.1) Test 06/28/18 07:27 Glucose (Fingerstick) 245 mg/dL (70-99) Physical Exam HEENT: Neck Supple W Full Motion Chest: Symmetric LUNGS: Clear to Auscultation Heart: S1S2, RRR (SR) Abdomen: Soft N/T Extremities: No Calf Tenderness Neurology: alert, oriented, follow commands Assessment Assessment 1. Chest pain: UA features 2. Accelerated HTN: labile 3. Acute on chronic diastolic CHF; compensated 4. CAD: past CABG x3 in 1999 5. DM1: insulin dependent. A1C 7.5 6. HLP: lipids on goal 7. PAD: hx of RLE fempop bypass and LLE revascularization (unclear method), clinically stable. Recommendations 1. Negative for MOY per sono. DC HCTZ/adalat and start on chlorthalidone and norvasc, Will adjust per BP trend. Hydralazine IV PRN 2. Continue rest of BP meds and ASA/plavix. Encouraged HBPM bid for 1 week and call if outside parameters discussed. 3. EF 55% with Basal inferior and inferoseptal marin appear hypokinetic and MPI revealed reversible defects. [facility] today. YUSRA OLVERA MD 06/28/18 1659: CARDIO Progress Notes Plan Plan Pt. seen and examined. Agree with above PAYROLL AND BENEFITS MANAGER note. Pls see cath report for full details. Needs BP optimization, [facility] CDA TEACHER PCI. Thanks. BERTA TAN COLOR SPECIALIST Jun 28, 2018 09:28 YUSRA OLVERA MD Jun 28, 2018 16:59
--- NOTE | 2018-06-28 09:34 | HP ---
ADMIT DATE: 06/27/2018 CHIEF COMPLAINT: Shortness of breath, chest pain. HISTORY OF PRESENT ILLNESS: A 72-year-old insulin-dependent diabetic with labile hypertension, has been seeing Dr. Lovell as an outpatient for episodes of chest pain. She was scheduled to have a chemical stress test and came to the ER with shortness of breath and nonspecific chest discomfort. She is currently in Cardiology to get an echocardiogram and Lexiscan, and not available for interview at this time. PAST MEDICAL HISTORY: Well documented in the old records, insulin-dependent diabetic, well controlled on very low-dose insulin. ALLERGIES: No allergies known. SOCIAL HISTORY: Nonsmoker. , nondrinker, not employed. FAMILY HISTORY: Unremarkable. REVIEW OF SYSTEMS: No other complaints. OBJECTIVE: ENT: All within normal limits. NECK: No bruits, nodes or masses. LUNGS: Clear. CARDIOVASCULAR: Regular rate. No irregular beat or murmur. ABDOMEN: Soft, benign, nontender. EXTREMITIES: Excellent pedal and radial pulses. No joint or skin lesions. Nail beds are normal. NEUROLOGIC: Physiologic, nonfocal. ASSESSMENT: Insulin-dependent diabetic, good control with nonspecific chest discomfort and dyspnea. She has labile hypertension with a white coat component, but all labs look good. Renal artery Doppler study was normal. Chest x-ray was unremarkable. She will have the cardiac studies as ordered. CHADD ROMERO MD DR: CHANDAN/woody JOB#: [id number] / [id number]
[2018-06-28] MEDS: amLODIPine BESYLATE 10 MG TABLET PO SCH (11:08)
[2018-06-28] MEDS: LISINOPRIL 20 MG TABLET PO SCH (11:09)
[2018-06-28] MEDS: ASCORBIC ACID 500 MG TABLET PO SCH (11:10)
[2018-06-28] MEDS: ISOSORBIDE MONONITRATE ER 30 MG TAB.ER.24H PO SCH (11:10)
[2018-06-28] MEDS: MULTIVITAMIN with MINERAL TABLET. PO SCH (11:10)
[2018-06-28] MEDS: CALCIUM CARB/VIT D3 500/200 TABLET. PO SCH ×2 (11:10→17:00)
[2018-06-28] MEDS: ASPIRIN ENTERIC COATED 81 MG TABLET.DR. PO SCH (11:10)
[2018-06-28] MEDS: CHLORTHALIDONE 25 MG TABLET. PO SCH (11:11)
[2018-06-28] MEDS: METOPROLOL TART IMMED RELEASE 50 MG TABLET. PO SCH ×2 (11:11→21:06)
[2018-06-28] MEDS: INSULIN LISPRO 300 UNITS/3 ML INSULN.PEN. SQ SCH ×3 (11:21→17:57)
[2018-06-28] MEDS: INSULIN GLARGINE 300 UNITS/3 ML INSULN.PEN. SQ SCH (11:22)
--- NOTE | 2018-06-28 12:20 | RAD ---
MR#: [id number] Date of Study: 06/28/2018 Ordering Physician: BERTA TAN, Referring Physician: GOLDIE MOMIN Tech: BRICE Thornton APPROVED REPORT Test Type: Pharmacological Stress Nurse/Tech: Trena Vickers R.N. Test Indications: c/p, CAD Cardiac History: Cabg,htn, DM Medications: See Electronic Medical Record Medical History: See Electronic Medical Record Resting Heart Rate: 81 bpm Resting Blood Pressure: 175/73mmHg Pretest Chest Pain: No chest pain Nurse/Tech Notes S1S2, lungs CTA Consent: The procedure was explained to the patient in lay terms. Informed consent was witnessed. Kaushik eout was entered into [employer]. History and Stress Test performed by BRICE Thornton Pharm. Details Pharmacologic stress testing was performed using 0.4mg per 5ml of regadenoson given intravenously ove r 7-10 seconds. Stress Symptoms h/a POST EXERCISE Reason for Termination: Infusion complete Max HR: 108 bpm Max Blood Pressure: 160/67mmHg Blood Pressure response to exercise: Normal blood pressure response during stress. Heart Rate response to exercise: wnl Chest Pain: No. Arrhythmia: No. ST Change: Yes. slight ST elevation in leads II,III, AVL, AVF, INTERPRETATION Stress EKG Conclusion: Mildly abnormal EKG with inferolateral ST segments depression suggestive of is chemia Imaging Protocol IMAGE PROTOCOL: Rest Tc-99m/stress Tc-99m 1 day Rest: Stress: Viability: Radiopharm.Tc99m [id number] Sestamibi Dose9.2mCi 33mCi Duration 15min. 13min. Img Date 06/28/2018 06/28/2018 Inj-Img [id number]. 60min. Rest Admin Site:IV - Left ForearmAdministrator:BRICE Thornton Stress Admin Site: IV - Left ForearmAdministrator: LE Benitez, ARRT (R)(N) STRESS DATA End Diast. Vol.105.0mlLVEDV index BSA66.0ml End Syst. Vol.47.0mlLVESV index BSA30.0ml Myocardial Jadh249.0gEject. Kllztbxp53.0% Stress Scores Regional WT2.00Summed WT25.00 Regional WM0.00Summed WM22.00 LV Perfusion There is a large size basal to mid and distal inferolateral and lateral mostly reversible defect sugg estive of prior infarction in the RCA territory with ischemia. There is also fixed apical defect with mild janay-infarct reversibility suggestive of prior LAD territory infarct. Wall Motion Grossly normal wall motion. EF 55%. LV Perfusion 1 TCD/TID: Yes LV Perf. Quant 17 Seg. SSS19.00 17 Seg. SRS16.00 17 Seg. SDS3.00 Stress Defect Extent (% LAD)21.30Rest Defect Extent (% LAD)14.40Rev. Defect Extent (% LAD)8.10 Stress Defect Extent (% LCX) 61.30Rest Defect Extent (% LCX)53.80Rev. Defect Extent (% LCX)45.00 Stress Defect Extent (% RCA)25.60Rest Defect Extent (% RCA)8.90Rev. Defect Extent (% RCA)17.80 Stress Defect Extent (% ROSARIO)37.60Rest Defect Extent (% ROSARIO)27.20Rev. Defect Extent (% ROSARIO)22.80 Other Information Quality:Good Risk Assessment: High Risk Conclusion 1. Mildly abnormal EKG with changes suggestive of ischemia 2. Large severe mostly reversible inferolateral defect. Fixed apical defect 3. Significant transient ischemic dilatation suggestive of multivessel disease 4. Normal LV systolic function 5. High risk for future cardiac events. Signed by : Joaquín Shah, Electronically Approved : 06/28/2018 12:20:19
[2018-06-28] MEDS ORDERED: IV 1/2 NORMAL SALINE 1,000 ML IV ONE (12:45)
[2018-06-28] MEDS ORDERED: fentaNYL PF VIAL 100 MCG/2 ML VIAL ONE (14:11)
[2018-06-28] MEDS ORDERED: MIDAZOLAM HCL/PF 2 MG/2 ML VIAL. ONE (14:11)
[2018-06-28] MEDS ORDERED: IODIXANOL 320 MG/ML 100 ML VIAL. ONE (14:14)
[2018-06-28] MEDS ORDERED: LIDOCAINE 1% Multi-Dose 20 ML VIAL. ONE (14:14)
[2018-06-28] MEDS ORDERED: HEPARIN for IV BOLUS 10,000 UNIT/10 ML VIAL. IART ONE (14:30)
[2018-06-28] MEDS ORDERED: VERAPAMIL 5 MG/2 ML VIAL. IART ONE (14:30)
[2018-06-28] MEDS ORDERED: NITROGLYCERIN 200 MCG/2 ML SYRINGE FOR CATH/VASC LAB. IART ONE (14:30)
[2018-06-28] MEDS ORDERED: LIDOCAINE 1% Multi-Dose 20 ML VIAL. INJ ONE (14:30)
[2018-06-28] MEDS ORDERED: fentaNYL PF VIAL 100 MCG/2 ML VIAL IV ONE (14:30)
[2018-06-28] MEDS ORDERED: MIDAZOLAM HCL/PF 2 MG/2 ML VIAL. IV ONE (14:30)
[2018-06-28] MEDS ORDERED: IODIXANOL 320 MG/ML 100 ML VIAL. IART ONE (14:30)
--- NOTE | 2018-06-28 16:12 | NUR ---
SS following for discharge planning. SS reviewed pt chart. Pt is from home with spouse. No discharge needs noted at this time. SS will continue to follow for discharge planning.
[2018-06-28] MEDS: ATORVASTATIN CALCIUM 10 MG TABLET. PO SCH (21:05)
[2018-06-28] MEDS: cloNIDine HCL 0.2 MG TABLET PO SCH (21:06)
[2018-06-29 03:00] VITALS: BP 141/66
[2018-06-29 07:00] VITALS: BP 153/72
[2018-06-29] MEDS: MULTIVITAMIN with MINERAL TABLET. PO SCH (08:30)
[2018-06-29] MEDS: CALCIUM CARB/VIT D3 500/200 TABLET. PO SCH (08:30)
[2018-06-29] MEDS: ASCORBIC ACID 500 MG TABLET PO SCH (08:30)
[2018-06-29] MEDS: ISOSORBIDE MONONITRATE ER 30 MG TAB.ER.24H PO SCH (08:30)
[2018-06-29] MEDS: CHLORTHALIDONE 25 MG TABLET. PO SCH (08:30)
[2018-06-29] MEDS: amLODIPine BESYLATE 10 MG TABLET PO SCH (08:31)
[2018-06-29] MEDS: ASPIRIN ENTERIC COATED 81 MG TABLET.DR. PO SCH (08:31)
[2018-06-29] MEDS: METOPROLOL TART IMMED RELEASE 50 MG TABLET. PO SCH (08:32)
[2018-06-29] MEDS: LISINOPRIL 20 MG TABLET PO SCH (08:32)
[2018-06-29] MEDS: cloNIDine HCL 0.2 MG TABLET PO SCH (08:33)
[2018-06-29] MEDS: INSULIN LISPRO 300 UNITS/3 ML INSULN.PEN. SQ SCH (08:38)
[2018-06-29] MEDS: INSULIN GLARGINE 300 UNITS/3 ML INSULN.PEN. SQ SCH (08:38)
[2018-06-29] MEDS ORDERED: CLOPIDOGREL BISULFATE 75 MG TABLET PO SCH (09:00)
[2018-06-29] MEDS ORDERED: CHLO25TA10 PO (10:37)
[2018-06-29] MEDS ORDERED: CLON0.2T10 PO (10:37)
[2018-06-29] MEDS ORDERED: AMLO10TA8 PO (10:37)
--- NOTE | 2018-06-29 10:44 | PDOC ---
CARDIOLOGY PROGRESS NOTE SUBJECTIVE: No acute events overnight. No chest pain OBJECTIVE: Vital SIgns: Vital Signs Date Time Temp Pulse Resp B/P (MAP) Pulse Ox O2 Delivery O2 Flow Rate FiO2 06/29/18 08:33 62 153/72 06/29/18 07:00 97.9 16 95 Room Air 97.9 06/28/18 15:34 2.0 I & O Intake and Output 06/29/18 07:00 Intake Total 1000 ml Output Total 720 ml Balance 280 ml Intake Oral 0 ml IV Total 1000 ml Output Urine Total 720 ml # Voids 2 Objective: GEN.: No apparent distress. Alert and oriented. HEENT: Head is normocephalic, atraumatic NECK: Supple. LUNGS: Clear to auscultation. HEART: RRR, S1, S2 present. Peripheral pulses intact ABDOMEN: Soft, nontender. Positive bowel sounds. EXTREMITIES: Without any cyanosis. NEUROLOGIC: Normal speech, normal tone PSYCHIATRIC: Normal affect, normal mood. SKIN: No ulcerations CURRENT MEDICATIONS: Current Medications Medications (Trade) Dose Ordered Sig/Josselyn Start Time Stop Time Status Last Admin Dose Admin Amlodipine Besylate (Norvasc) 10 mg DAILY 06/28/18 09:30 06/29/18 08:31 10 MG Ascorbic Acid (Vitamin C) 500 mg DAILY 06/28/18 09:00 06/29/18 08:30 500 MG Aspirin (Consuelo Aspirin) 325 mg 1X ONCE 06/27/18 11:00 06/27/18 11:03 DC 06/27/18 11:14 325 MG Aspirin (Ecotrin) 81 mg DAILY 06/28/18 09:00 06/29/18 08:31 81 MG Atorvastatin Calcium (Lipitor) 10 mg QHS 06/27/18 21:00 06/28/18 21:05 10 MG Calcium/Vitamin D (Oscal D 500mg/ 200uts) 1 tab BIDWMEALS 06/28/18 08:00 06/29/18 08:30 1 TAB Chlorthalidone (Thalitone) 25 mg DAILY 06/28/18 10:00 06/29/18 08:30 25 MG Clonidine HCl (Catapres) 0.2 mg BID 06/28/18 21:00 06/29/18 08:33 0.2 MG Clopidogrel Bisulfate (Plavix) 75 mg QODAY 06/29/18 09:00 06/29/18 08:30 75 MG Fentanyl Citrate (Fentanyl 2ml Vial) 100 mcg 1X ONCE 06/28/18 14:30 06/28/18 14:33 DC 06/28/18 14:30 50 MCG Furosemide (Lasix) 40 mg 1X ONCE 06/27/18 14:30 06/27/18 14:34 DC 06/27/18 14:43 40 MG Heparin Sodium (Porcine) (Heparin Sodium) 2,500 unit 1X ONCE 06/28/18 14:30 06/28/18 14:33 DC 06/28/18 14:30 2,500 UNIT Heparin Sodium/ Sodium Chloride (HEPARIN for ARTERIAL LINE FLUSH) 1,000 unit 1X ONCE 06/28/18 14:30 06/28/18 14:33 DC 06/28/18 14:30 1,000 UNIT Hydralazine HCl (Apresoline Inj) 10 mg PRN Q4HRS PRN 06/27/18 14:45 06/27/18 17:15 10 MG Hydrochlorothiazide (Microzide) 12.5 mg DAILY 06/28/18 09:00 06/28/18 09:25 DC Insulin Glargine (Lantus) 13 units DAILY08 06/28/18 08:00 06/29/18 08:38 13 UNITS Insulin Human Lispro (HumaLOG) 7 units TIDWMEALS 06/29/18 12:00 Iodixanol (Visipaque 320) 100 ml 1X ONCE 06/28/18 14:30 06/28/18 14:33 DC 06/28/18 14:30 127 ML Isosorbide Mononitrate (Imdur) 60 mg DAILY 06/28/18 09:00 06/29/18 08:30 60 MG Lidocaine HCl (Lidocaine 1% 20ml Vial) 20 ml 1X ONCE 06/28/18 14:30 06/28/18 14:33 DC 06/28/18 14:30 1 ML Lisinopril (Prinivil) 40 mg DAILY 06/28/18 09:00 06/29/18 08:32 40 MG Metoprolol Tartrate (Lopressor) 50 mg BID 06/27/18 21:00 06/29/18 08:32 50 MG Midazolam HCl (Versed) 2 mg 1X ONCE 06/28/18 14:30 06/28/18 14:33 DC 06/28/18 14:30 2 MG Morphine Sulfate (Morphine Sulfate) 4 mg PRN Q2HR PRN 06/27/18 15:00 06/28/18 14:59 DC Multivitamins (Thera M Plus) 1 tab DAILY 06/28/18 09:00 06/29/18 08:30 1 TAB Nifedipine (Procardia Xl) 30 mg DAILY 06/28/18 09:00 06/28/18 09:23 DC Nitroglycerin (Nitroglycerin) 200 mcg 1X ONCE 06/28/18 14:30 06/28/18 14:33 DC 06/28/18 14:30 200 MCG Nitroglycerin (Nitrostat) 0.4 mg PRN Q5MIN PRN 06/27/18 15:00 06/28/18 14:59 DC Non-Formulary Medication (Ubidecarenone (Co Q-10)) 100 mg BID 06/28/18 09:00 UNV Ondansetron HCl (Zofran) 4 mg PRN Q8HRS PRN 06/27/18 15:00 06/28/18 14:59 DC 06/28/18 10:20 4 MG Regadenoson (Lexiscan) 0.4 mg 1X ONCE 06/28/18 08:15 06/28/18 08:16 DC 06/28/18 09:40 0.4 MG Sodium Chloride 1,000 ml @ 75 mls/hr 1X ONCE 06/28/18 12:45 06/29/18 02:04 DC 06/28/18 13:04 75 MLS/HR Verapamil HCl (Verapamil) 2.5 mg 1X ONCE 06/28/18 14:30 06/28/18 14:33 DC 06/28/18 14:30 2.5 MG DIAGNOSTIC TESTING: No new tests. ASSESSMENT: 1. 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 2. HTN PLAN: Continue present meds. f/u at [facility] for complex CLEAN IN PLACES OPERATOR PCI Will f/u with Dr. lara. Supportive care. Thanks. YUSRA OLVERA MD Jun 29, 2018 10:44
[2018-06-29 11:00] VITALS: BP 103/50
[2018-06-29] MEDS ORDERED: INSULIN LISPRO 300 UNITS/3 ML INSULN.PEN. SQ SCH (12:00)
--- NOTE | 2018-06-29 12:24 | NUR ---
Discharge Note: NEHA BEAR [address] Discharge instructions and discharge home medications reviewed with Patient and a copy given. All questions have been answered and understanding verbalized. The following instructions and handouts were given: medications, diet, follow up appointments, Dr. Glez instructed the patient to use the clonidine PRN. Discontinued lines and drains: IV removed, no lines present. Patient discharged to home. left via wheelchair to her husbands vehicle.
--- NOTE | 2018-06-29 12:33 | CARD ---
MR#: [id number] Date of Study: 06/28/2018 Ordering Physician: BERTA TAN, Referring Physician: CHADD ROMERO Tech: RT Efrain (R) APPROVED REPORT Technologist: RT Efrain (R) Nurse: Shelly Jerome RN Procedure(s) performed: Moderate sedation: 35 minutes Fluoro time: 6.3 minutes Dose: 62 Gycm2 Contrast: 127 cc LHC, Coronary angiography, bypass angiography HISTORY The patient is a 72 year-old female with a history of : diabetes mellitus with insulin treatment, hyp ertension, previous CABG (The CABG date was ), dyslipidemia. INDICATION The indication(s) include : positive stress test, unstable angina . CSHA Clinical Frailty Scale CS Clinical Frailty Scale: Moderately Frail Heart Failure Heart Failure: Yes If Yes, Newly Diagnosed: No If Yes, HF Type: Diastolic If Yes, NYHA Class: Class III PROCEDURE NARRATIVE INDICATION: 72 y.o woman with unstable angina despite two anti-anginal meds and abnormal stress testing. INFORMED CONSENT: After explaining the risks and benefits of the procedure and alternatives, informed consent was obtained. The patient was brought electively to the cardiac catheterization lab. A timeout was performed confi rming the patient's name, date of , procedure, and site of procedure. All necessary personnel w ere wearing the appropriate protective equipment and radiation monitor devices. (See nursing notes for medications administered). ACCESS: The left wrist was sterilely prepped and draped in the usual fashion. The left wrist was infiltrated with 1 mL of 2% lidocaine for subcutaneous anesthesia. A 6 Malian Terumo glide sheath was inserted into the left radial artery without difficulty. CORONARY ANGIOGRAPHY: Right and left coronary angiography was performed using a 6Fr JR4 and JL3.5 catheters. Left ventric ular end diastolic pressure was obtained with a JL4 catheter and pullback was performed. All cathet er exchanges and advancements were performed over a guidewire. CLOSURE: At case completion the left radial sheath was removed and a Terumo radial band was applied with 13 ml of air. COMPLICATIONS: The patient tolerated the procedure well and there were no immediate complications. FINDINGS: HEMODYNAMICS: LVEDP 15 mm Hg No gradient on LV to aortic pullback. AO: 160/80 LEFT VENTRICULOGRAM:Deferred due to known EF based on stress testing of 55% CORONARY ANGIOGRAPHY: LM is a large caliber vessel with a proximal eccentric 20% stenosis. LAD is a moderate sized heavily calcified vessel with a mid 100% occlusion after a moderate sized 2nd diagonal. D1 is a small caliber vessel with mild diffuse disease of up to 30%. D2 is a small to moderate sized vessel that provides most of the collateral network to the distal LAD and RCA. LCx is a small caliber non-dominant vessel with proximal calcified 60% stenosis. Several small caliber obtuse marginal vessels are noted with moderate diffuse disease. RCA is a large caliber dominant vessel with proximal heavily calcified 100% occlusion. The distal ves lulu is seen to fill via left to right septal and RPL collaterals from the LCx. BYPASS ANGIOGRAPHY: CHAVIS to LAD - Proximal and distal anastomosis is patent but the LAD at the site of the distal anastom osis is occluded and there is retrograde flow in the LAD to 2nd septal collaterals and more proximall y the LAD is occluded. SVG to RCA - Occluded proximally SVG to LCx vessels - Severely negatively remodeled with subtotal occlusion. Conclusion 1. Mildly elevated left sided filling pressures consistent with acute on chronic diastolic HF 2. Uncontrolled HTN 3. Severe ek[place] three vessel coronary disease. 4. 3/3 grafts functionally occluded. Recommendations Plan for referral to [facility] (Dr. Sepulveda) for complex high risk [employer] recanalization of the RCA, LAD given significant anginal symptoms and normal LV function. Signed by : Joaquín Shah, Electronically Approved : 06/29/2018 12:33:02
--- NOTE | 2018-06-29 15:23 | DS ---
DATE OF DISCHARGE: 06/29/2018 PRIMARY DIAGNOSIS: Angina. ADDITIONAL DIAGNOSES: Three-vessel coronary artery disease, insulin-dependent diabetes, hypertension, hyperlipidemia, chronic vertigo. CHIEF COMPLAINT AND HISTORY OF PRESENT ILLNESS: This 72-year-old white female, patient of Dr. Chadd Calabrese, admitted through the Emergency Room with chest pain and shortness of breath. SUMMARY OF STAY: The patient was admitted. Blood pressures were elevated and meds were adjusted throughout the stay. The patient had a chest x-ray on admission that showed some possible mild congestive changes. She had a renal artery duplex showing no evidence of significant renal artery stenosis. She had a nuclear medicine MPI showing inferolateral defect that was large and a fixed apical defect. She went for cardiac catheterization, which the dictation is not available yet, but showed me a picture showing a 3-vessel disease with complete occlusion of the LAD and right coronary three prior grafts, with occlusion of the right coronary graft as well as the LAD graft. The circumflex had a 70-80% narrowing with I believe an open graft to that area. It was felt she would need a complex intervention better done at [facility] with some red ring of vessels with stent placement and Dr. Shah was going to arrange that at the time of discharge. Blood pressures were better by the time of discharge, and she was felt ready for dismissal on the day of discharge. DISPOSITION: The patient is discharged to home, ADA diet, activity as tolerated. Follow up with Dr. Calabrese in 1 week. DISCHARGE MEDICATIONS: Listed on the med rec and have been addressed. PRO SINGH MD DR: KURT/woody JOB#: [id number] / [id number] CHADD Hurt
== END 2018-06-29 11:55 | disposition home or self-care (01) | DRG 286 ==
LOC: ER 10:34 → 2 SOUTH 13:56
PROVIDERS: ADMIT Family Medicine; ATTEND Family Medicine
PROC: 4A023N7 Measurement of Cardiac Sampling and Pressure, Left Heart, Percutaneous Approach (ICD-10-PCS; principal; 2018-06-28)
PROC: B2111ZZ Fluoroscopy of Multiple Coronary Arteries using Low Osmolar Contrast (ICD-10-PCS; 2018-06-28)
PROC: B2181ZZ Fluoroscopy of Left Internal Mammary Bypass Graft using Low Osmolar Contrast (ICD-10-PCS; 2018-06-28)
PROC: B2131ZZ Fluoroscopy of Multiple Coronary Artery Bypass Grafts using Low Osmolar Contrast (ICD-10-PCS; 2018-06-28)
DX: T82.857A Stenosis of other cardiac prosthetic devices, implants and grafts, initial encounter (principal); I50.33 Acute on chronic diastolic (congestive) heart failure; I25.110 Atherosclerotic heart disease of native coronary artery with unstable angina pectoris; I25.82 Chronic total occlusion of coronary artery; E78.00 Pure hypercholesterolemia, unspecified; I11.0 Hypertensive heart disease with heart failure; M19.90 Unspecified osteoarthritis, unspecified site; E10.51 Type 1 diabetes mellitus with diabetic peripheral angiopathy without gangrene; E78.5 Hyperlipidemia, unspecified; Y83.2 Surgical operation with anastomosis, bypass or graft as the cause of abnormal reaction of the patient, or of later complication, without mention of misadventure at the time of the procedure; Y92.89 Other specified places as the place of occurrence of the external cause; Z79.4 Long term (current) use of insulin; Z85.3 Personal history of malignant neoplasm of breast; Z85.820 Personal history of malignant melanoma of skin; Z90.13 Acquired absence of bilateral breasts and nipples; Z95.1 Presence of aortocoronary bypass graft; Z90.710 Acquired absence of both cervix and uterus; Z98.51 Tubal ligation status; Z79.899 Other long term (current) drug therapy
CPT/HCPCS: 36415; 71045; 76770; 78452; 80048; 80053; 80061; 81001; 82553; 82962; 83036; 83735; 83880; 84443; 84484; 85025; 85379; 85610; 93005; 93017; 93306; 93459; 96374; 99152; 99153; A9500; C1769; C1892; J0360; J1644; J1815; J1940; J2250; J2405; J2785; J3010; J3490; Q9967; 99285-25

== ENCOUNTER 2018-12-19 22:56 | Emergency (ER) | payer MEDICARE ==
[~2018-12-19] VITALS: Ht 157.5 cm; Wt 56.2 kg
[~2018-12-19 22:56] MED LIST changes: +AMLO10TA8 PO; +CHLO25TA10 PO; +CLON0.2T10 PO; +LOPE2TAB27 PO
[2018-12-19 23:08] VITALS: BP 203/84
--- NOTE | 2018-12-20 01:28 | PHYS DOC ---
Past Medical History Past Medical History: CAD, Cancer, Diabetes-Type I, High Cholesterol, Heart Disease, Hypertension, Other Additional Past Medical Histor: MELANOMA-LEFT KNEE,VESTIBULAR NEURONITIS L EAR,VERTIGO (ADRIAN SMITH APRN) Past Surgical History: Coronary Bypass Surgery, , Hysterectomy, Tubal ligation, Other Additional Past Surgical Histo: Mastectomy, cataract surgery, carpal tunnel,RT LEG FEM-POP BYPASS, STENTS (ADRIAN SMITH APRN) Alcohol Use: None Drug Use: None (ADRIAN SMITH APRN) Attending Signature I have participated in the care of this patient and I have reviewed and agree with all pertinent clinical information above including history, exam, and recommendations. (ANN-MARIE RIZVI MD) Adult General Chief Complaint Chief Complaint: FOREIGNBODY EAR HPI HPI Patient is a 72 year old female who presents complaining of a foreign object in the left ear, patient states the ear bud from her hearing aid broke and is lodged into her left ear. Patient states she has chronic hearing loss. (ADRIAN SMITH APRN) Review of Systems Review of Systems Constitutional: Denies fever or chills [] HENT: Reports foreign object in the left ear canal. Denies nasal congestion or sore throat [] Musculoskeletal: Denies back pain or joint pain [] Integument: Denies rash or skin lesions [] Neurologic: Denies headache, focal weakness or sensory changes [] All other systems were reviewed and found to be within normal limits, except as documented in this note. (ADRIAN SMITH APRN) Allergies Allergies Allergies Coded Allergies Type Severity Reaction Last Updated Verified hydralazine Allergy Intermediate Nausea and Vomiting 11/06/18 Yes (ANN-MARIE RIZVI MD) Physical Exam Physical Exam Constitutional: Well developed, well nourished, no acute distress, non-toxic appearance. [] HENT: Normocephalic, atraumatic, bilateral external ears normal, oropharynx moist, no oral exudates, nose normal. Bilateral ear canals were examined, both of them impacted with moderate cerumen, there is no obvious foreign object noted in either ear canal. Skin: Warm, dry, no erythema, no rash. [] Back: No tenderness, no CVA tenderness. [] Extremities: No tenderness, no cyanosis, no clubbing, ROM intact, no edema. [] Neurologic: Alert and oriented X 3, normal motor function, normal sensory function, no focal deficits noted. [] Psychologic: Affect normal, judgement normal, mood normal. [] (ADRIAN SMITH APRN) Current Patient Data Vital Signs Vital Signs Date Time Temp Pulse Resp B/P (MAP) Pulse Ox O2 Delivery O2 Flow Rate FiO2 12/19/18 23:08 97.7 73 18 203/84 (123) Room Air 97.7 (ANN-MARIE RIZVI MD) EKG EKG [] (ADRIAN SMITH APRN) Radiology/Procedures Radiology/Procedures [] (ADRIAN SMITH APRN) Course & Med Decision Making Course & Med Decision Making Pertinent Labs and Imaging studies reviewed. (See chart for details) This is a 72-year-old female patient presenting to the ED today concerned she could have an earbud from her hearing aid lodged in the left ear, no foreign object was noted on physical exam. Patient follows up with Dr. German Calabrese ENT, requested her to try and get an appointment tomorrow and follow-up. (ADRIAN SMITH APRN) Dragon Disclaimer Dragon Disclaimer This electronic medical record was generated, in whole or in part, using a voice recognition dictation system. (ADRIAN SMITH APRN) Departure Departure Impression: Primary Impression: Foreign body of ear, left Disposition: 01 HOME, SELF-CARE Condition: STABLE Problem Qualifiers Primary Impression: Foreign body of ear, left Encounter type: initial encounter Qualified Codes: T16.2XXA - Foreign body in left ear, initial encounter ADRIAN SMITH APRN Dec 20, 2018 01:28 ANN-MARIE RIZVI MD Dec 20, 2018 04:09
== END 2018-12-19 23:55 | disposition home or self-care (01) ==
LOC: ER 22:56
DX: T16.2XXA Foreign body in left ear, initial encounter (principal); I11.9 Hypertensive heart disease without heart failure; E78.00 Pure hypercholesterolemia, unspecified; E10.9 Type 1 diabetes mellitus without complications; I25.10 Atherosclerotic heart disease of native coronary artery without angina pectoris; Z90.710 Acquired absence of both cervix and uterus; Z98.51 Tubal ligation status; Z95.1 Presence of aortocoronary bypass graft; Z88.8 Allergy status to other drugs, medicaments and biological substances; X58.XXXA Exposure to other specified factors, initial encounter; Y93.89 Activity, other specified; Y92.89 Other specified places as the place of occurrence of the external cause; Y99.8 Other external cause status
CPT/HCPCS: 99281

== ENCOUNTER → 2019-04-08 | Outpatient (CLI) | payer MEDICARE ==
[~2019-04-08] MED LIST changes: -NIFE30TA17 PO; +NIFE30TA95 PO; +SIMV20TA18 PO; -SIMV20TA3 PO; +SIMV40TA18 PO; -SIMV40TA3 PO; +VITA-8 PO; -VITA400C36 PO
--- NOTE | 2019-04-08 15:51 | KCIC ---
Bilateral diagnostic digital mammograms: Reason for examination: Left breast lump on clinical exam. History of bilateral subcutaneous mastectomies due to persistent disease with silicone implants at the time of mastectomies. Silicone implants were later replaced with saline implants due to implant recall. No previous films for comparison. New baseline. Interpretation was made with the benefit of CAD. The skin and right nipple show no abnormalities. Left nipple is not well visualized. No abnormal axillary lymph nodes are seen. Saline implants are present bilaterally. There is a large amount of capsular calcification on the left with only mild capsular calcification on the right implant. The breast parenchyma is substantially absent due to subcutaneous mastectomies. There are no dominant masses, suspicious calcifications or architectural distortion. Impression: No evidence of malignancy. Ultrasound to follow. BI-RAD Category 0: Incomplete. Needs additional imaging evaluation. Left breast ultrasound: The left breast implant appears to be intact. There is a calcifying capsule on the surface of the implant. No suspicious nodules are seen. No abnormal appearing lymph nodes are seen in the axilla. IMPRESSION: Left breast implant with capsular calcification. No suspicious nodules evident. Recommend clinical follow-up. BI-RADS Category 2: Benign. "Our facility is accredited by the [employer] Mammography Program." This patient's information has been entered into a reminder system for the patient to be notified with the results of her examination and a target date for the next mammogram. Electronically signed by: Anne Rosario MD (04/08/2019 3:48 PM) [id number]
== END | disposition home or self-care (01) ==
LOC: KCIC MAMMO 08:41
PROVIDERS: ATTEND Internal Medicine
DX: R92.1 Mammographic calcification found on diagnostic imaging of breast (principal)
CPT/HCPCS: 76641; 77066

== ENCOUNTER → 2019-05-02 | Outpatient (CLI) | payer MEDICARE ==
--- NOTE | 2019-05-02 13:20 | KCIC ---
THYROID ULTRASOUND History: Right mass on CT Comparison: There is no previous similar exam available Findings: Multiple sonographic images of the thyroid gland are submitted. Right lobe measured 4.9 x 2.1 x 2.3 cm. Left lobe measured 4.4 x 1.5 x 1.5 cm. Isthmus measured 0.4 cm AP thickness. There are several scattered foci of nodularity and cysts bilaterally. A dominant hypoechoic lesion of the mid to superior right thyroid gland up to 0.8 cm, likely a cyst. There is an adjacent, heterogeneous mostly solid although partially cystic nodule of the mid to superior right gland about 2.1 x 1.8 x 1.5 cm in size with internal vascularity on color Doppler imaging. There is small cystic lesion of the mid to superior left gland up to 0.4 cm not associated with significant internal vascularity. There is somewhat more heterogeneous, complex nodule along the medial left thyroid gland and isthmus measured about 0.5 x 0.3 x 0.6 cm, mild peripheral vascularity. Impression: 1. There are bilateral thyroid nodules, dominant nodule of the mid to superior right gland up to 2.1 cm. Electronically signed by: Domingo Caro MD (05/02/2019 1:17 PM) [facility]
== END | disposition home or self-care (01) ==
LOC: KCIC US 10:45
PROVIDERS: ATTEND Internal Medicine Rheumatology
DX: E04.2 Nontoxic multinodular goiter (principal)
CPT/HCPCS: 76536

== ENCOUNTER 2021-06-07 23:16 | Emergency (ER) | payer MEDICARE ==
[~2021-06-07] VITALS: Ht 157.5 cm; Wt 52.5 kg
[~2021-06-07 23:16] MED LIST changes: +AMLO-187 PO; -AMLO10TA8 PO; -ASCO250T PO; +ASCO250T11 PO; -ENAL20TA PO; +ENAL20TA10 PO; -ISOS60TA2 PO; +ISOS60TA55 PO; +LISI10TA16 PO; -LISI10TA2 PO
--- NOTE | 2021-06-08 00:07 | RAD ---
CT HEAD/BRAIN WO History: Asymmetric pupil Comparison: MRI brain 06/12/2017 Technique: Noncontrast CT imaging was performed of the head. Findings: No intracranial hemorrhage. No mass effect. No hydrocephalus. No evidence of acute territorial infar ction. There is stable prominence of the ventricles similar to comparison MRI. Old right frontal cran iotomy tract. Postsurgical changes the lenses. Orbits are otherwise unremarkable. Imaged paranasal sinuses and mast oid air cells are clear. The scalp and calvarium are unremarkable. Impression: 1. No acute intracranial abnormality. ----- Exposure: One or more of the following individualized dose reduction techniques were utilized for thi s examination: 1. Automated exposure control 2. Adjustment of the mA and/or kV according to patient size 3. Use of iterative reconstruction technique. Electronically signed by: Manny Parker MD (06/08/2021 12:05 AM) [facility]
[2021-06-08 00:15] VITALS: BP 197/130
[2021-06-08] MEDS ORDERED: LABETALOL 20 MG/4 ML DISP.SYRIN. IVP ONE (00:15)
--- NOTE | 2021-06-08 00:17 | PHYS DOC ---
Past Medical History Past Medical History: CAD, Cancer, Diabetes-Type I, High Cholesterol, Heart Disease, Hypertension, Other Additional Past Medical Histor: MELANOMA-LEFT KNEE,VESTIBULAR NEURONITIS L EAR,VERTIGO Past Surgical History: No Surgical History Additional Past Surgical Histo: Mastectomy, cataract surgery, carpal tunnel,RT LEG FEM-POP BYPASS, STENTS Smoking Status: Never Smoker Alcohol Use: None Drug Use: None General Adult EDM: Chief Complaint: HYPERTENSION HPI: HPI: Patient is a 75 year old female past medical history diabetes hypertension hyperlipidemia coronary artery disease CVA with no residual weakness presents via EMS for the concern of stroke. PER ems patient had history of unequal pupils. Family wanted patient transported to ER for concerns of stroke. Upon arrival to the emergency department patient patient is alert, She is unsure why she is actually here at the hospital. Pupils are equal she has no facial droop or slurred speech bilateral upper extremities show no weakness. Patient's NIH stroke scale 0. Patient's initial blood pressure 190s systolic. Patient was taken to CT- per stroke protocal. Further history obtained from upon his arrival. He is requesting patient to be transferred to [facility]. Does not want any further workup performed here at [place]. -- states around 2000hrs home nursing noticed 1 of patients pupil was larger than the other. is unable to tell me which pupil was larger. He denies any facial droop slurred speech or focal weakness. He also states home nurse was also having difficulty controlling patients patient's blood sugars--Stating that her blood sugar was >300s. Because of pupillary changes and elevated blood sugar home nursing was concerned of a possible stroke therefore advise to have patient brought to the emergency department for evaluation. Patients is requesting no further workup to be performed here at [facility]. request transfer to [facility] because patient and received all previous care there. Review of Systems: Review of Systems: Constitutional: Denies fever or chills. [] Eyes: Denies change in visual acuity. [] HENT: Denies nasal congestion or sore throat. [] Respiratory: Denies cough or shortness of breath. [] Cardiovascular: Denies chest pain or edema. [] GI: Denies abdominal pain, nausea, vomiting, bloody stools or diarrhea. [] : Denies dysuria. [] Musculoskeletal: Denies back pain or joint pain. [] Integument: Denies rash. [] Neurologic: Denies headache, focal weakness or sensory changes. [] Endocrine: Denies polyuria or polydipsia. [] Lymphatic: Denies swollen glands. [] Psychiatric: Denies depression or anxiety. [] Heart Score: C/O Chest Pain: N/A Risk Factors: Risk Factors: DM, Current or recent (<one month) smoker, HTN, HLP, family history of CAD, obesity. Risk Scores: Score 0 - 3: 2.5% MACE over next 6 weeks - Discharge Home Score 4 - 6: 20.3% MACE over next 6 weeks - Admit for Clinical Observation Score 7 - 10: 72.7% MACE over next 6 weeks - Early Invasive Strategies Allergies: Allergies: Allergies Coded Allergies Type Severity Reaction Last Updated Verified hydralazine Allergy Intermediate Nausea and Vomiting 11/06/18 Yes Physical Exam: PE: General: alert, no acute distress. Skin: warm, dry and intact, no erythema, no rash. HENT: bilateral external ears normal, oropharynx moist, nose normal. Eyes pupils equal and reactive to light and accommodation extraocular muscles intact Head:: Normocephalic, atraumatic. Neck: Trachea midline. Eyes: EOMI, Normal conjunctiva, No drainage CARDIOVASCULAR: Regular rate and rhythm RESPIRATORY: No respiratory distress Back: Full range of motion. MUSCULOSKELETAL: Full range of motion of bilateral upper and lower extremities. GASTROINTESTINAL: Abdomen soft without rebound or guarding. NEUROLOGICAL: Alert . No neurological deficits observed Psychiatric: Cooperative. Normal judgment Current Patient Data: Vital Signs: Vital Signs Date Time Temp Pulse Resp B/P (MAP) Pulse Ox O2 Delivery O2 Flow Rate FiO2 06/07/21 23:41 97.8 95 20 194/84 (120) 97 Room Air 97.8 EKG: EKG: Performed at 0032 Rate 84 Normal sinus rhythm No ST elevation No ST depression No acute VA [] Radiology/Procedures: Radiology/Procedures: [] Impression: CT head non contrast negative Course & Med Decision Making: Course & Med Decision Making Pertinent Labs and Imaging studies reviewed. (See chart for details) [] Long discussion with . He is requesting patient be transferred to [facility]. He is declining work-up here at [facility]. Patient's blood pressure noted to be greater than 200 systolic he is agreeable with treating patient's blood pressure. Will order labetalol 20 mg. 0000hrs--contacted [facility] transfer center. Spoke with Dr. Grigsby-- Transfer to [facility] pending availability. 0035hrs--transfer accepted to [facility]--ER to ER transfer. 0045-- post treatment blood pressure 170's systolic. Negative CT head non contrast Normal EKG Bed Side GLucose - 370 agreeable to insulin treatment. 10U regular insulin ordered. Dragon Disclaimer: Dragon Disclaimer: This electronic medical record was generated, in whole or in part, using a voice recognition dictation system. NIHSS Stroke Scale NIH Stroke Scale: NIH Stroke Scale Response (Comments) Value Level of Consciousness: 0 Alert/Responsive 0 LOC Questions: 0 Answers both correctly 0 LOC Commands: 0 Performs both tasks 0 Best Gaze: 0 Normal 0 Visual: 0 No visual loss 0 Facial Palsy: 0 Normal, symmetrical 0 Motor - Left Arm 0 No drift 0 Motor - Right Arm 0 No drift 0 Motor - Left Leg 0 No drift 0 Motor: Right Leg 0 No drift 0 Limb Ataxia: 0 Absent 0 Sensory: 0 No loss 0 Best Language: 0 Normal 0 Dysathria: 0 Normal 0 Extinction and Inattention: 0 Normal 0 Total 0 Departure Departure Impression: Primary Impression: Hypertension Additional Impression: Hyperglycemia Disposition: 51 HOSPICE/MEDICAL FACILITY ([facility]) Condition: STABLE Referrals: CHADD ROMERO MD (PCP) BAYLEE ALONSO DO Jun 08, 2021 00:17
[2021-06-08 00:23] LABS: BASO % 1 % (0-3); EOS # 0.4 x10^3/uL (0.0-0.7); EOS % 7 % (0-3); HEMATOCRIT 36.1 % (36.0-47.0); HEMOGLOBIN 11.4 g/dL (12.0-15.5); LYMPH # 0.8 x10^3/uL (1.0-4.8); LYMPH % 12 % (24-48); MEAN CORPUSCULAR HEMOGLOBIN 28 pg (25-35); MEAN CORPUSCULAR HGB CONC 31 g/dL (31-37); MEAN CORPUSCULAR VOLUME 90 fL (79-100); MONO # 0.8 x10^3/uL (0.0-1.1); MONO % 13 % (0-9); NEUT # 4.3 x10^3/uL (1.8-7.7); NEUT % 68 % (31-73); PLATELET COUNT 340 x10^3/uL (140-400); RED BLOOD COUNT 4.02 x10^6/uL (3.50-5.40); RED CELL DISTRIBUTION WIDTH 14.7 % (11.5-14.5); WHITE BLOOD COUNT 6.4 x10^3/uL (4.0-11.0)
[2021-06-08 00:29] LABS: CALCIUM 8.9 mg/dL (8.5-10.1); CREATININE 1.3 mg/dL (0.6-1.0); GFR 39.9; POTASSIUM 4.2 mmol/L (3.5-5.1)
[2021-06-08 00:35] LABS: ALBUMIN 2.9 g/dL (3.4-5.0); ALBUMIN/GLOBULIN RATIO 0.8 (1.0-1.7); TOTAL BILIRUBIN 0.2 mg/dL (0.2-1.0); TOTAL PROTEIN 6.5 g/dL (6.4-8.2)
[2021-06-08] MEDS ORDERED: INSULIN REGULAR 100 UNIT/ML 3ML VIAL. SQ ONE (00:45)
--- NOTE | 2021-06-08 05:58 | EKG ---
[facility] [address] [place] [address] Test Date: 2021-06-08 Test Time: 00:32:13 Pat Name: NEHA BEAR Department: Room: Gender: F Invasive Physician: : [id number] Requested By: BAYLEE ALONSO Order Number: [id number] Reading MD: Joaquín Shah MD Measurements Intervals [place] Rate: 84 P: -11 TX: 186 QRS: 78 QRSD: 90 T: 58 QT: 402 QTc: 479 Interpretive Statements SINUS RHYTHM Nonspecific ST-T wave changes Electronically Signed On 06-10-2021 17:54:58 CDT by Joaquín Shah MD
== END 2021-06-08 01:25 | disposition hospice, inpatient (51) ==
LOC: ER 23:16
DX: E10.65 Type 1 diabetes mellitus with hyperglycemia (principal); I11.9 Hypertensive heart disease without heart failure; I25.10 Atherosclerotic heart disease of native coronary artery without angina pectoris; E78.00 Pure hypercholesterolemia, unspecified; E78.5 Hyperlipidemia, unspecified; Z86.73 Personal history of transient ischemic attack (TIA), and cerebral infarction without residual deficits; Z88.8 Allergy status to other drugs, medicaments and biological substances
CPT/HCPCS: 36415; 70450; 80053; 84484; 85025; 93005; 96372; 96374; 99285; J1815; J3490